=== PATIENT | female | born 1940 | race Caucasian/White ===

== ENCOUNTER → 2017-08-20 | Outpatient (REF) | payer MEDICARE, OTHER | LOC: M LAB REF 14:48 | PROVIDERS: ATTEND Family Medicine | DX: R94.6 Abnormal results of thyroid function studies (principal) ==

== ENCOUNTER → 2017-12-23 | Outpatient (REF) | payer MEDICARE, OTHER ==
[2017-12-23 11:11] LABS: ANION GAP 4 MEQ/L (8-16); BLOOD UREA NITROGEN 25 MG/DL (7-18); CALCIUM LEVEL 9.4 MG/DL (8.8-10.2); CARBON DIOXIDE LEVEL 31 MEQ/L (21-32); CHLORIDE LEVEL 106 MEQ/L (98-107); CREATININE FOR GFR 0.79 MG/DL (0.55-1.30); GLOMERULAR FILTRATION RATE > 60.0 (>39); GLUCOSE, FASTING 88 MG/DL (70-100); POTASSIUM SERUM 4.7 MEQ/L (3.5-5.1); SODIUM LEVEL 141 MEQ/L (136-145)
== END ==
LOC: M LABDRAW1 08:24
DX: R94.6 Abnormal results of thyroid function studies (principal); R03.0 Elevated blood-pressure reading, without diagnosis of hypertension
CPT/HCPCS: 84443

== ENCOUNTER 2019-02-03 09:48 | Day surgery (SDC) | payer MEDICARE, BC, OTHER ==
[~2019-02-03] VITALS: Ht 152.4 cm; Wt 63.9 kg
[~2019-02-03 09:48] MED LIST: ASPI81TA26 PO; CHOL50002 PO; FISH1000 PO; LIDOCAINE 2% INJ 100 MG/5 ML SDV (FOR ANES.) As Ordered ONE; NS 1,000 ML IV ONE; PROPOFOL 200 MG/20 ML VIAL As Ordered ONE; curamed PO
[2019-02-03] MEDS ORDERED: [UNRECOGNIZED DRUG - REMARK] (10:13)
--- NOTE | 2019-02-03 12:08 | ROOR ---
Patient Name: Mariah Schmitz Procedure Date: 02/03/2019 11:30 AM Date of : 1940 Age: 79 Room: [facility] Gender: Female Note Status: Finalized Procedure: Colonoscopy Indications: High risk colon cancer surveillance: Personal history of non-advanced adenoma, Last colonoscopy: September 2013 Providers: Bib Lakhani MD Referring MD: Lalitha Landaverde MD Requesting Provider: Medicines: Monitored Anesthesia Care Complications: No immediate complications. Procedure: Pre-Anesthesia Assessment: - Prior to the procedure, a History and Physical was performed, and patient medications and allergies were reviewed. The patient is competent. The risks and benefits of the procedure and the sedation options and risks were discussed with the patient. All questions were answered and informed consent was obtained. Patient identification and proposed procedure were verified by the physician, the nurse and the anesthesiologist in the procedure room. Mental Status Examination: alert and oriented. CV Examination: regular rate and rhythm. Prophylactic Antibiotics: The patient does not require prophylactic antibiotics. Prior Anticoagulants: The patient has taken no previous anticoagulant or antiplatelet agents. ASA Grade Assessment: II - A patient with mild systemic disease. After reviewing the risks and benefits, the patient was deemed in satisfactory condition to undergo the procedure. The anesthesia plan was to use monitored anesthesia care (MAC). Immediately prior to administration of medications, the patient was re-assessed for adequacy to receive sedatives. The heart rate, respiratory rate, oxygen saturations, blood pressure, adequacy of pulmonary ventilation, and response to care were monitored throughout the procedure. The physical status of the patient was re-assessed after the procedure. The was introduced through the anus and advanced to the cecum, identified by appendiceal orifice and ileocecal valve. The colonoscopy was somewhat difficult due to significant looping. The patient tolerated the procedure well. The quality of the bowel preparation was good. Findings: The perianal and digital rectal examinations were normal. Multiple medium-mouthed diverticula were found in the sigmoid colon. A 3 mm polyp was found in the distal ascending colon. The polyp was sessile. Biopsies were taken with a cold forceps for histology. Estimated blood loss was minimal. Impression: - Diverticulosis in the sigmoid colon. - One 3 mm polyp in the distal ascending colon. Biopsied. Recommendation: - Discharge patient to home. - Resume previous diet. - Continue present medications. - Await pathology results. Bib Lakhani MD Bib Lakhani MD 02/03/2019 12:08:06 PM Electronically signed by Bib Lakhani MD Number of Addenda: 0 Note Initiated On: 02/03/2019 11:30 AM Estimated Blood Loss: Estimated blood loss was minimal.
[2019-02-03 12:27] VITALS: BP 149/87
== END 2019-02-03 12:37 | disposition home or self-care (01) ==
LOC: M OPP 09:48
PROVIDERS: ATTEND Surgery
DX: D12.2 Benign neoplasm of ascending colon (principal); K57.30 Diverticulosis of large intestine without perforation or abscess without bleeding; Z86.010 Personal history of colon polyps

== ENCOUNTER → 2019-04-23 | Outpatient (REF) | payer MEDICARE, OTHER ==
[~2019-04-23] MED LIST changes: -LIDOCAINE 2% INJ 100 MG/5 ML SDV (FOR ANES.) As Ordered ONE; -NS 1,000 ML IV ONE; -PROPOFOL 200 MG/20 ML VIAL As Ordered ONE; +[UNRECOGNIZED DRUG - REMARK]
[2019-04-23 12:16] LABS: BASO # 0.1 10^3/uL (0.0-0.2); EOS # 0.3 10^3/uL (0.0-0.50); EOS % 4.8 % (0.0-3.0); HEMATOCRIT 36.8 % (36.0-47.0); HEMOGLOBIN 12.1 g/dl (12.0-15.5); LYMPH % 31.7 % (24.0-44.0); MEAN CORPUSCULAR HEMOGLOBIN 31.7 pg (27.0-33.0); MEAN CORPUSCULAR HGB CONC 32.9 g/dl (32.0-36.5); MEAN CORPUSCULAR VOLUME 96.3 fl (80.0-96.0); MONO # 0.6 10^3/uL (0.0-0.8); NEUTROPHILS # 3.3 10^3/uL (1.8-7.7); NEUTROPHILS % 53.2 % (36.0-66.0); PLATELET COUNT, AUTOMATED 296 10^3/uL (150-450); RED BLOOD COUNT 3.82 10^6/uL (4.00-5.40); WHITE BLOOD COUNT 6.2 10^3/uL (4.0-10.0)
[2019-04-23 12:21] LABS: ALT/SGPT 19 U/L (12-78); BILIRUBIN,TOTAL 0.4 MG/DL (0.2-1.0); BLOOD UREA NITROGEN 24 MG/DL (7-18); CALCIUM LEVEL 9.6 MG/DL (8.8-10.2); CARBON DIOXIDE LEVEL 28 MEQ/L (21-32); CHLORIDE LEVEL 108 MEQ/L (98-107); CHOLESTEROL LEVEL 176 MG/DL (<200); CHOLESTEROL RISK RATIO 2.626 (<5); CREATININE FOR GFR 0.72 MG/DL (0.55-1.30); GLOMERULAR FILTRATION RATE > 60.0 (>32); GLUCOSE, FASTING 97 MG/DL (70-100); HDL CHOLESTEROL 67 MG/DL (>40); LDL CHOLESTEROL 93 MG/DL (<100); NON-HDL-C 109 MG/DL; POTASSIUM SERUM 4.2 MEQ/L (3.5-5.1); SODIUM LEVEL 142 MEQ/L (136-145); TOTAL PROTEIN 7.2 GM/DL (6.4-8.2); TRIGLYCERIDES LEVEL 81 MG/DL (<150)
== END ==
LOC: M LABDRAW1 11:56
PROVIDERS: ATTEND Physician Assistant
DX: R03.0 Elevated blood-pressure reading, without diagnosis of hypertension (principal); Z01.810 Encounter for preprocedural cardiovascular examination; Z79.899 Other long term (current) drug therapy

== ENCOUNTER 2019-04-30 05:48 | Day surgery (SDC) | payer MEDICARE, BC, OTHER ==
[~2019-04-30] VITALS: Ht 152.4 cm; Wt 64.0 kg
[2019-04-30] MEDS ORDERED: ceFAZolin SOD 2 GM in IV 1 EA IV ONE (06:00)
[2019-04-30] MEDS ORDERED: LR 1,000 ML IV ONE (06:00)
[2019-04-30] MEDS ORDERED: PHENAZOPYRIDINE 100 MG TAB PO ONE (06:00)
[2019-04-30] MEDS ORDERED: VASOPRESSIN INJ 20 UNITS/ML VIAL As Ordered ONE (07:08)
[2019-04-30] MEDS ORDERED: dexameTHASONE 4 MG/ML 1ML VIAL (J1100) As Ordered ONE (07:43)
[2019-04-30] MEDS ORDERED: SEVOFLURANE INHAL SOLN 250 ML BTL As Ordered ONE (07:43)
[2019-04-30] MEDS ORDERED: propofoL 200 MG/20 ML VIAL As Ordered ONE (07:43)
[2019-04-30] MEDS ORDERED: fentaNYL 100 MCG/2 ML INJECTION (J3010) As Ordered ONE (07:43)
[2019-04-30] MEDS ORDERED: MIDAZOLAM INJ 2 MG/2 ML VIAL (J2250) As Ordered ONE (07:43)
[2019-04-30] MEDS ORDERED: LIDOCAINE 2% INJ 100 MG/5 ML SDV (FOR ANES.) As Ordered ONE (07:43)
[2019-04-30] MEDS ORDERED: GLYCOPYRROLATE INJ 0.2 MG/ML 2 ML VIAL As Ordered ONE (08:07)
[2019-04-30] MEDS ORDERED: ePHEDrine SULFATE 25 MG/5 ML(5MG/ML) SYRINGE As Ordered ONE (08:12)
[2019-04-30] MEDS ORDERED: ACETAMINOPHEN 1000MG 100ML IV BTL (OFIRMEV) (J0131 PER 10MG) As Ordered ONE (08:13)
[2019-04-30] MEDS ORDERED: ONDANSETRON 4MG/2ML VIAL (J2405) As Ordered ONE (08:15)
[2019-04-30] MEDS ORDERED: IBUPROFEN 600 MG TAB PO PRN (10:15)
[2019-04-30] MEDS ORDERED: NORCO, ANEXSIA 5/325MG TABLET (HYDROcodone/ACETAMINOPHEN) PO PRN (10:15)
[2019-04-30] MEDS ORDERED: METOCLOPRAMIDE INJ 10MG/2ML VIAL (J2765) IV PRN (10:15)
[2019-04-30] MEDS ORDERED: fentaNYL 100 MCG/2 ML INJECTION (J3010) IV PRN (10:15)
[2019-04-30] MEDS ORDERED: ONDANSETRON 4MG/2ML VIAL (J2405) IV PRN (10:15)
[2019-04-30] MEDS ORDERED: oxyCODONE 5MG TAB PO PRN (10:15)
[2019-04-30] MEDS ORDERED: LR 1,000 ML IV SCH ×2 (10:15)
[2019-04-30 14:35] VITALS: BP 168/86
--- NOTE | 2019-04-30 22:01 | RO ---
DATE OF PROCEDURE: 04/30/2019 PREOPERATIVE DIAGNOSIS: Symptomatic prolapse. POSTOPERATIVE DIAGNOSIS: Symptomatic prolapse. PROCEDURE: Sacrospinous suspension with anterior and posterior repair and cystourethroscopy. SURGEON: Dr. Sana Velasquez FIRMWARE ENGINEER: Irasema Kim ANESTHESIA: LMA. DESCRIPTION OF PROCEDURE: Mariah was brought to the operating room where sufficient LMA anesthesia was induced, and she was prepped, draped and positioned in the usual sterile fashion, bladder was emptied. She had taken Pyridium to facilitate visualization of the ureteral jets. She had some chafing at the vaginal cuff from her pessary, which had been, of course, removed and so an ovoid excision was made around this area of granulation tissue and this was all excised and that was right at the cuff where we were going to enter anyway so that dictated to some degree the size of that resection. Having taken the vaginal epithelium and the granulation tissue, we then dissected posteriorly to reach the right sacrospinous ligament, which was readily palpable and reasonably well developed despite this patient's 79-year-old age. We then placed four [place]on sutures using two AnchorSure anchors, so we had #2-0 [place] and placed four o them, two each in each of the two AnchorSure anchors, placed in the ligament, of course, medial to the notch so as to avoid the underlying vessels and nerves. We then carefully brought each of these sutures out [id number] through the tissues of the vaginal epithelium, two anterior, two posterior. And having placed those, marked them, kept them from tangling, we then closed the vaginal cuff in preparation for bringing down the sutures and then used a sponge on a stick to elevate the vaginal cuff to minimize the trauma because this patient has fairly delicate tissues. Then, we brought down each of those sutures and then did cystourethroscopy and found normal ureteral jets and good anterior repair with this support and no evidence of injury of the bladder. We then proceeded to an additional posterior repair because the patient has really loss of the rectovaginal septum in the mid posterior, so an inverted triangle of tissue was removed from the perineal body, dissected up posteriorly until we reached the level of the defect. We plicated the tissues with #2-0 Vicryl in the usual fashion and resected the redundant epithelium, closed the epithelium, did a perineorrhaphy using #0 Vicryl and then closed the perineal skin as well using #2-0 on the skin on each of those and then the procedure was ended. Estimated blood loss for the procedure: About 20 mL. Fluid replacement was crystalloid. Complications: None. We did do a rectal exam. Condition and Disposition: The patient tolerated the procedure well and was recovering in the recovery room in good condition.
== END 2019-04-30 14:53 | disposition home or self-care (01) ==
LOC: M SDC 05:48
PROVIDERS: ATTEND Obstetrics & Gynecology
DX: N81.89 Other female genital prolapse (principal); Z79.899 Other long term (current) drug therapy; Z88.0 Allergy status to penicillin; Z88.5 Allergy status to narcotic agent; Z91.013 Allergy to seafood
CPT/HCPCS: 57260; 57282; 88300; C1713; J0131; J0690; J1100; J2250; J2405; J3010

== ENCOUNTER → 2019-07-13 | Outpatient (CLI) | payer MEDICARE, BC, OTHER ==
--- NOTE | 2019-07-13 15:43 | REP ---
Four views right elbow: 07/13/2019. Indication: Right elbow pain. Comparison: None. Findings: There is no acute fracture, subluxation or dislocation. No erosive lesions of the bones are present. There is no significant joint effusion detected. Impression: No fracture or additional acute osseous abnormalities of the right elbow. No significant effusion. Electronically Signed by Randy Barrow DO 07/13/2019 03:34 P
== END ==
LOC: M WUC 12:05
PROVIDERS: ATTEND Physician Assistant
DX: M25.521 Pain in right elbow (principal)

== ENCOUNTER → 2020-09-27 | Outpatient (CLI) | payer SELFPAY | LOC: M LABSMTC 09:39 | PROVIDERS: ATTEND Pediatrics | DX: Z20.822 Contact with and (suspected) exposure to COVID-19 (principal) ==

== ENCOUNTER 2020-10-20 05:34 | Inpatient (IN) | payer MEDICARE, BC, OTHER ==
[2020-10-20] VITALS (12 sets, daily range): BP systolic 113–135; BP diastolic 60–76
[~2020-10-20] VITALS: Ht 154.9 cm; Wt 65.5 kg
--- OUTSIDE RECORDS SUMMARY | 2020-10-20 05:40 | CCD | Continuity of Care Document ---
Author Author Mariah DEY M.D. Organization Unknown Address [address] [place] [address] Phone [phone] Care Team Providers Care Embedded Software Developer Name Role Phone Noaman. Jimmy Augustin AUTM [phone] Sana Velasquez M.D. AUTM [phone] Problems Active Problems Provider Date Essential hypertension Lalitha Dey M.D. Onset: 07/27 Spinal stenosis of lumbar region Lalitha Dey M.D. On set: 07/27/2020 Social History Type Date Description Comments Sex Unknown Tobacco Use Start: Unknown End: Unknown denies cigarette use Tobacco Use Start: Unknown Never Used Smokeless Tobacco ETOH Use Occasionally consumes alcohol Tobacco Use Start: Unknown End: Unknown Patient is a former smoker social smoker in college. Recreational Drug Use Denies Drug Use Smoking Status Reviewed: 07/25/20 Patient is a former smoker so cial smoker in college. Exercise Type/Frequency Exercises regularly walk ing and physical therapy exercises daily Tattoo/Piercing Pierced ears Sun Exposure Uses sunscreen Seat Belt/Car Seat Always uses seat belt Bike Helmet Never She never bike r ides Guns in Home No Smoke Alarms Yes Smoke Alarms Carbon Monoxide Detector: Yes Allergies, Adverse Reactions, Alerts Active Allergies Reaction Severity Comments Date Pen VK hives 04/23/2005 Metronidazole face broke out with welts 0 02/18/2012 Bactrim hives 08/08/2012 Shellfish-derived Products faints 0 10/27/2013 Tramadol Nausea, Vomiting 07/07/2018 Ragweed 01/04/2020 Medications Active Medications SIG Qnty Indications Ordering Provide r Date Lisinopril 10mg Tablets Take 1 Tablet By Mouth Every Day 90tabs I10 Lalitha Dey M.D. 020 Vitamin D-1000 1000Unit Tablets 1 po qd otc Lalitha Dey M.D. 07/16/2011 Aspirin 81mg Chewtabs 1 po qd Lalitha Dey M.D. 02/01/2006 Calcium Carbonate 500mg W/D Tablet s 1 po bid Unknown Claritin 10mg Tablets 1 PO qd prn OTC Unknown Fish Oil Concentrate 1000mg Capsul es 2 by mouth every day Noaman. Augustin M.D. Curamin Tablets OTC- bid Unknown Retaine Eye Drops 0.5% Solution 2 dropsin each eye 2-3 times a day Noaman. Augustin M.D. Vitamin B Complex Tablets 1 by mouth every day Unknown Magnesium 250mg Tablets 1 by mouth every day Unknown Immunizations CPT Code Status Date Vaccine Lot # [id number] Given 06/27/2020 Influenza Virus Vaccine, Quadrivalent,age 3 and up,multidose vial 62712 Given 05/26/2019 Influenza Virus Vaccine, Quadrivalent,age 3 and up,multidose vial 03246 Given 05/26/2019 Influenza Virus Vaccine, Quadrivalent,age 3 and up,multidose vial 04646 Given 07/07/2018 Influenza Virus Vaccine, Quadrivalent,age 3 and up,multidose vial [id number] Q2038 Given 07/01/2017 Influenza Vaccine (Fluzone)( medicare) [id number] 70631 Given 06/15/2016 Influenza Vaccination 80541 Given 12/28/2015 Zostavax 60971 Given 12/27/2015 Zostavax 51850 Given 12/27/2015 Prevnar 13 [id number] 07560 Given 10/03/2015 Boostrix (Tdap) Tetnus, Diphtheria Toxoids & Acellular Pertussis [id number] Q2038 Given 06/09/2015 Influenza Vaccine (Fluzone)( medicare) [id number] 94358 Given 06/08/2013 Influenza Vaccination [id number] Q2038 Given 06/08/2013 Influenza Vaccine (Fluzone)( medicare) 32015 Given 07/28/2012 Influenza Vaccination/preser vative free [id number] Q2038 Given 07/10/2011 Influenza Vaccine (Fluzone)( medicare) 22190 Given 07/10/2011 Influenza Vaccination/preser vative free [id number] 41944 Given 06/13/2010 Pneumococcal Vaccine [id number] 77380 Given 06/13/2010 Influenza Vaccination [id number] 08789 Given 06/03/2009 Influenza Vaccination [id number] 13131 Given 06/21/2008 Influenza Vaccination [id number] 62296 Given 07/02/2007 Influenza Vaccination [id number] 93636 Given 06/17/2006 Influenza Vaccination [id number] 44637 Given 06/05/2005 Influenza Vaccination [id number] Vital Signs Date Vital Result Comment 07/25/2020 11:10am BP Systolic 169 mmHg BP Diastolic 79 mmHg BP Systolic Recheck 129 mmHg BP Diastolic Recheck 74 mmHg Heart Rate 72 /min Body Temperature 97.6 F Respiratory Rate 17 /min Height 60 inches 5'0" Weight 140.00 lb O2 % BldC Oximetry 98 % [place] Body Weight 100 lb BMI (Body Mass Index) 27.3 kg/m2 03/23/2020 8:21am BP Systolic 171 mmHg BP Diastolic 67 mmHg BP Systolic Recheck 147 mmHg BP Diastolic Recheck 68 mmHg Heart Rate 74 /min Body Temperature 97.2 F Respiratory Rate 20 /min Height 60 inches 5'0" Weight 145.00 lb O2 % BldC Oximetry 98 % [place] Body Weight 100 lb BMI (Body Mass Index) 28.3 kg/m2 Results Test Acquired Date Facility Test Result H/L Range Note Coronavirus 2018 ([facility]) 09/27/2020 Patient Service C enter [facility] [address] [phone] Coronavirus 2019 ([facility]) <SEE NOTE> 1 1 Test: COVID-19 Nasal/Naspharynx Result: POSITIVE for 2019-nCoV Reference Units: Not detected NOTE: The COVID-19 assay is under Emergency Use Authorization(EUA) by the U.S. Food and Drug Administration. [facility] is designated as a high complexity laboratory by the Clinical Laboratory Improvement Amendments of 1988(CLIA) and is qualified to perform this test. ASSAY INFORMATION: Real Time RT-PCR Procedures Date Code Description Status 01/14/2019 [id number] Mammogram Completed 01/04/2016 [id number] Mammogram Completed 12/21/2014 [id number] Mammogram Completed Medical Devices Description No Information Available Encounters Type Date Location Provider Dx Diagnosis Office Visit 07/25/2020 11:15a Main Office Lalitha Dey M.D. I 10 Essential (primary) hypertension Assessments Date Code Description Provider 07/25/2020 I10 Essential (primary) hypertension Lalitha Dey M.D. Plan of Treatment Future Appointment(s):* 01/17/2021 8:00 am - Lalitha Dey M.D. at Main Office 07/25/2020 - Lalitha Dey M.D.* I10 Essential (primary) hypertension* New Labs:* Comprehensive Metabolic Profil, Scheduled: 01/16/21 * CBC With Differential, Scheduled: 01/16/21 * Lipid Panel, Scheduled: 01/16/21 * Comments:* She's not to goal in the office but consistently good outside of the office. Keep exercising and monitoring BP. Follow up in 6 months. * Follow up:* 6 months, with labs Goals 07/25/2020 - Lalitha Dey M.D.* I10 Essential (primary) hypertension* Blood Pressure not to goal. Monitor it out of the office and bring a list of readings to the follow up appointment. Notify the office if Blood pressure is consistently higher than 140/90. Work toward getting 30 minutes of moderate intensity exercise at least 5 days per week. Functional Status Functional Condition Comment Date Status .None Active Independent with all ADL's Activ e Independent with all IADL's Acti ve Mental Status Mental Condition Comment Date Status None Active Referrals Description No Information Available
--- OUTSIDE RECORDS SUMMARY | 2020-10-20 05:40 | CCD | Continuity of Care Document ---
Author Author Mariah DEY M.D. Organization Unknown Address [address] [place] [address] Phone [phone] Care Team Providers Care Director Of Professional Services Name Role Phone Noaman. Jimmy Augustin AUTM [phone] Sana Velasquez M.D. AUTM [phone] Problems Description No Active Problems Social History Type Date Description Comments Sex [...] Ordering Provide r Date Lisinopril 10mg Tablets take 1 tablet by mouth every day 90tabs I10 Komal Rosales FNP 09/15/2019 Vitamin D-1000 1000Unit Tablets 1 po qd [...] CPT Code Status Date Vaccine Lot # [id number] Given 06/27/2020 Influenza Virus Vaccine, Quadrivalent,age 3 and up,multidose vial 36128 Given 05/26/2019 Influenza Virus Vaccine, Quadrivalent,age 3 and up,multidose vial 46095 Given 05/26/2019 Influenza Virus Vaccine, Quadrivalent,age 3 and up,multidose vial 00429 Given 07/07/2018 Influenza Virus Vaccine, Quadrivalent,age 3 and up,multidose vial [id number] Q2038 Given 07/01/2017 Influenza Vaccine (Fluzone)( medicare) [id number] 15472 Given 06/15/2016 Influenza Vaccination 16822 Given 12/28/2015 Zostavax 97845 Given 12/27/2015 Zostavax 70834 Given 12/27/2015 Prevnar 13 [id number] 35928 Given 10/03/2015 Boostrix (Tdap) Tetnus, Diphtheria Toxoids & Acellular Pertussis [id number] Q2038 Given 06/09/2015 Influenza Vaccine (Fluzone)( medicare) [id number] 32207 Given 06/08/2013 Influenza Vaccination [id number] Q2038 Given 06/08/2013 Influenza Vaccine (Fluzone)( medicare) 19174 Given 07/28/2012 Influenza Vaccination/preser vative free [id number] Q2038 Given 07/10/2011 Influenza Vaccine (Fluzone)( medicare) 98407 Given 07/10/2011 Influenza Vaccination/preser vative free [id number] 45640 Given 06/13/2010 Pneumococcal Vaccine [id number] 79606 Given 06/13/2010 Influenza Vaccination [id number] 04245 Given 06/03/2009 Influenza Vaccination [id number] 57767 Given 06/21/2008 Influenza Vaccination [id number] 23728 Given 07/02/2007 Influenza Vaccination [id number] 40405 Given 06/17/2006 Influenza Vaccination [id number] 52359 Given 06/05/2005 Influenza Vaccination [id number] Vital Signs Date Vital Result Comment 07/25/2020 11:10am BP Systolic 169 mmHg BP Diastolic 79 mmHg BP Systolic Recheck 129 mmHg BP Diastolic Recheck 74 mmHg Heart Rate 72 /min Body Temperature 97.6 F Respiratory Rate 17 /min Height 60 inches 5'0" Weight 140.00 lb O2 % BldC Oximetry 98 % [place] Body Weight 100 lb BMI (Body Mass Index) 27.3 kg/m2 03/23/2020 8:21am BP Systolic 171 mmHg BP Diastolic 67 mmHg BP Systolic Recheck 147 mmHg BP Diastolic Recheck 68 mmHg Heart Rate 74 /min Body Temperature 97.2 F Respiratory Rate 20 /min Height 60 inches 5'0" Weight 145.00 lb O2 % BldC Oximetry 98 % [place] Body Weight 100 lb BMI (Body Mass Index) 28.3 kg/m2 Results Description No Information Available Procedures Date Code Description Status 01/14/2019 [id number] Mammogram Completed 01/04/2016 [id number] Mammogram Completed 12/21/2014 [id number] Mammogram Completed Medical Devices Description No Information Available Encounters Type Date Location Provider Dx Diagnosis Office Visit 07/25/2020 11:15a Main Office Lalitha Dey M.D. I 10 Essential (primary) hypertension Office Visit 03/23/2020 8:15a Main Office Komal Rosales FNP I10 Essential (primary) hypertension Assessments Date Code Description Provider 07/25/2020 I10 Essential (primary) hypertension Lalitha Dey M.D. 03/23/2020 I10 Essential (primary) hypertension Komal Rosales FNP Plan of Treatment Future Appointment(s):* 01/17/2021 8:00 [...]
--- OUTSIDE RECORDS SUMMARY | 2020-10-20 05:40 | CCD | Continuity of Care Document ---
Author Author Mariah DEY M.D. Organization Unknown Address [address] [place] [address] Phone [phone] Care Team Providers Care Manager Wastewater Name Role Phone Noaman. Jimmy Augustin AUTM [phone] Sana Velasquez M.D. AUTM [phone] Problems Description No Active Problems Social History [...] CPT Code Status Date Vaccine Lot # 54621 Given 06/27/2020 Influenza Virus Vaccine, Quadrivalent,age 3 and up,multidose vial 40083 Given 05/26/2019 Influenza Virus Vaccine, Quadrivalent,age 3 and up,multidose vial 95778 Given 05/26/2019 Influenza Virus Vaccine, Quadrivalent,age 3 and up,multidose vial 60686 Given 07/07/2018 Influenza Virus Vaccine, Quadrivalent,age 3 and up,multidose vial [id number] Q2038 Given 07/01/2017 Influenza Vaccine (Fluzone)( medicare) [id number] 42202 Given 06/15/2016 Influenza Vaccination 75028 Given 12/28/2015 Zostavax 83412 Given 12/27/2015 Zostavax 56044 Given 12/27/2015 Prevnar 13 [id number] 42380 Given 10/03/2015 Boostrix (Tdap) Tetnus, Diphtheria Toxoids & Acellular Pertussis [id number] Q2038 Given 06/09/2015 Influenza Vaccine (Fluzone)( medicare) [id number] 20937 Given 06/08/2013 Influenza Vaccination [id number] Q2038 Given 06/08/2013 Influenza Vaccine (Fluzone)( medicare) 07993 Given 07/28/2012 Influenza Vaccination/preser vative free [id number] Q2038 Given 07/10/2011 Influenza Vaccine (Fluzone)( medicare) 66077 Given 07/10/2011 Influenza Vaccination/preser vative free [id number] 31762 Given 06/13/2010 Pneumococcal Vaccine [id number] 05450 Given 06/13/2010 Influenza Vaccination [id number] 92801 Given 06/03/2009 Influenza Vaccination [id number] 72451 Given 06/21/2008 Influenza Vaccination [id number] 65674 Given 07/02/2007 Influenza Vaccination [id number] 12873 Given 06/17/2006 Influenza Vaccination [id number] 26666 Given 06/05/2005 Influenza Vaccination [id number] Vital Signs Date Vital Result Comment 07/25/2020 11:10am BP Systolic 169 mmHg BP Diastolic 79 mmHg BP Systolic Recheck 129 mmHg BP Diastolic Recheck 74 mmHg Heart Rate 72 /min Body Temperature 97.6 F Respiratory Rate 17 /min Height 60 inches 5'0" Weight 140.00 lb O2 % BldC Oximetry 98 % [place] Body Weight 100 lb BMI (Body Mass Index) 27.3 kg/m2 03/23/2020 8:21am BP Systolic 171 mmHg BP Diastolic 67 mmHg BP Systolic Recheck 147 mmHg BP Diastolic Recheck 68 mmHg Heart Rate 74 /min Body Temperature 97.2 F Respiratory Rate 20 /min Height 60 inches 5'0" Weight 145.00 lb O2 % BldC Oximetry 98 % [place] Body Weight 100 lb BMI (Body Mass Index) 28.3 kg/m2 Results Description No Information Available Procedures Date Code Description Status 01/14/2019 [id number] Mammogram Completed 01/04/2016 [id number] Mammogram Completed 12/21/2014 [id number] Mammogram Completed Medical Devices Description No Information Available Encounters Type Date Location Provider Dx Diagnosis Office Visit 03/23/2020 8:15a Main Office Komal Rosales FNP I10 Essential (primary) hypertension Assessments Date Code Description Provider 07/25/2020 I10 Essential (primary) hypertension Lalitha Dey M.D. 03/23/2020 I10 Essential (primary) hypertension Komal Rosales FNP Plan of Treatment 07/25/2020 - Lalitha Dey M.D.* I10 Essential (primary) hypertension* New Labs:* Comprehensive Metabolic Profil, Scheduled: 01/16/21 * CBC With Differential, Scheduled: 01/16/21 * Lipid Panel, Scheduled: 01/16/21 * Follow up:* 6 months, with labs Functional Status Functional Condition Comment Date Status .None Active Independent with all ADL's Activ e Independent with all IADL's Acti ve Mental Status Mental Condition Comment Date Status None Active Referrals Description No Information Available
--- OUTSIDE RECORDS SUMMARY | 2020-10-20 05:40 | CCD | Continuity of Care Document ---
Author Author Mariah COMER PAShira Organization Unknown Address [address] [place] [address] Phone [phone] Care Team Providers Care Legal Summer Intern Name Role Phone Lalitha Landaverde MD [facility] [phone] Problems Description No Active Problems Social History Type Date Description Comments Sex Unknown ETOH Use Occasionally consumes alcohol Tobacco Use Start: Unknown End: Unknown Patient is a former smoker Allergies, Adverse Reactions, Alerts Active Allergies Reaction Severity Comments Date Penicillin 07/20/2015 Ragweed 07/20/2015 Shellfish-derived Products 1 09/19/2014 Metronidazole and Related Medications Active Medications SIG Qnty Indications Ordering Provide r Date Euflexxa 20mg/2ML Soln Prefill Syr junie right knee #1 10/10/20 cp/bms, rt knee 10/17/2020 BMS/TF Francesco Mason MD 02/09/2020 Zanaflex 4mg Tablets 1 by mouth at bedtime 60tabs Damien Hale MD 06/16/2018 Tizanidine HCL 2mg Tablets 1/2 tablet po bid and 1 tablet p.o. qhs x 7 days, then may increase to 1 tablet p.o. bid and 1-2 tablets p.o. qhs Unknown Multi Vitamin Daily Tablets every day Unknown Aspirin 81mg Tablets 1 by mouth every day Unknown Vitamin D 2000Unit Capsules 1 by mouth a day Unknown Calcium 500 + D [id number] Tab lets 1 by mouth twice a day Unknown Coumadin Tablets as direc tati by doctor Unknown Immunizations Description No Information Available Vital Signs Date Vital Result Comment 06/16/2018 8:53am Body Temperature 97.5 F Height 60 inches 5'0" Weight 138.25 lb BMI (Body Mass Index) 27.0 kg/m2 05/29/2017 2:53pm Body Temperature 98.6 F Height 60 inches 5'0" Weight 144.00 lb BMI (Body Mass Index) 28.1 kg/m2 Results Description No Information Available Procedures Date Code Description Status 10/17/202064939 Inject/Drain Joint/Bursa Major C ompleted 10/10/2020 59132 Inject/Drain Joint/Bursa Major C ompleted Medical Devices Description No Information Available Encounters Type Date Location Provider Dx Diagnosis Office Visit 10/17/2020 11:00a [facility] Comer PA-C M1 7.11 Unilateral primary osteoarthritis, right knee Office Visit 10/10/2020 10:30a [facility] PA-C M1 7.11 Unilateral primary osteoarthritis, right knee Assessments Date Code Description Provider 10/17/2020 M17.11 Unilateral primary osteoarthriti s, right knee Young Comer PA-C 10/10/2020 M17.11 Unilateral primary osteoarthriti s, right knee Young Comer PA-C Plan of Treatment Future Appointment(s):* 10/24/2020 11:30 am - Young Comer PA-C at [facility] 10/10/2020 - Young Comer PA-C* M17.11 Unilateral primary osteoarthritis, right knee Functional Status Description No Information Available Mental Status Description No Information Available Referrals Refer to Dr Reason for Referral Status Appt Date Young Comer PA-C Right knee Euflexxa- No authorization r eq Created [facility] [address] [place] [address] [phone]
--- OUTSIDE RECORDS SUMMARY | 2020-10-20 05:40 | CCD ---
Continuity of Care Document (CCD) Created on: 10/10/2020 Mariah Schmitz External Reference #: [id number] : [id number] Sex: Female Author Author Mariah COMER PAShira Organization Unknown Address [address] [place] [id number] Phone [phone] Care Team Providers Care Betting Clerk Name Role Phone Lalitha Landaverde MD [facility] [phone] Problems Description No Active Problems Social History [...] Prefill Syr junie right knee #1 10/10/20 cp/bms Francesco Mason MD 0 02/09/2020 Zanaflex 4mg Tablets 1 by mouth [...] a day Unknown Calcium 500 + D [id number] Tab lets 1 by mouth twice a [...] Information Available Procedures Date Code Description Status 10/10/2020 37390 Inject/Drain Joint/Bursa Major C ompleted Medical Devices Description No Information Available Encounters Type Date Location Provider Dx Diagnosis Office Visit 10/10/2020 10:30a [facility] Yonug Comer PA-C M1 7.11 Unilateral primary osteoarthritis, right knee Assessments Date Code Description Provider 10/10/2020 M17.11 Unilateral primary osteoarthriti s, right knee Young Comer PA-C Plan of Treatment Future Appointment(s):* 10/24/2020 11:30 am - Young Comer PA-C at [facility] * 10/17/2020 11:00 am - Young Comer PA-C at [facility] 10/10/2020 - Young Comer PA-C* M17.11 Unilateral primary osteoarthritis, right knee Functional Status Description No Information Available Mental Status Description No Information Available Referrals Refer to Dr Reason for Referral Status Appt Date Young Comer PA-C Right knee Euflexxa- No authorization r eq Created [address] [facility] [address] [place] [address] [phone]
--- OUTSIDE RECORDS SUMMARY | 2020-10-20 05:41 | CCD ---
Author Author [facility] Organization [facility] Address Unknown Phone Unavailable Care Team Providers Care Tea Blender Name Role Phone Nayan Landaverde MD Unavailable Unavailable Akhil, Nayan Doty MD Unavailable Unavailable Akhil, Nayan Doty MD Unavailable Unavailable Akhil, Nayan Doty MD Unavailable Unavailable Akhil, Nayan Doty MD Unavailable Unavailable Akhil, Nayan Doty MD Unavailable Unavailable Akhil, Nayan Doty MD Unavailable Unavailable Akhil, Nayan Doty MD Unavailable Unavailable Akhil, Nayan Doty MD Unavailable Unavailable Akhil, Nayan Doty MD Unavailable Unavailable Akhil, Nayan Doty MD Unavailable Unavailable Akhil, Nayan Doty MD Unavailable Unavailable Akhil, Nayan Doty MD Unavailable Unavailable Akhil, Nayan Doty MD Unavailable Unavailable Akhil, Nayan Doty MD Unavailable Unavailable Akhil, Nayan Doty MD Unavailable Unavailable Akhil, Nayan Doty MD Unavailable Unavailable Akhil, Nayan Doty MD Unavailable Unavailable Akhil, Nayan Doty MD Unavailable Unavailable Akhil, Nayan Doty MD Unavailable Unavailable Akhil, Nayan Doty MD Unavailable Unavailable Akhil, Nayan Doty MD Unavailable Unavailable Akhil, Nayan Doty MD Unavailable Unavailable Akhil, Nayan Doty MD Unavailable Unavailable Akhil, Nayan Doty MD Unavailable Unavailable Akhil, Nayan Doty MD Unavailable Unavailable Akhil, Nayan Doty MD Unavailable Unavailable Akhil, Nayan Doty MD Unavailable Unavailable Akhil, Nayan Doty MD Unavailable Unavailable Akhil, Nayan Doty MD Unavailable Unavailable Akhil, Nayan Doty MD Unavailable Unavailable Akhil, Nayan Doty MD Unavailable Unavailable Akhil, Nayan Doty MD Unavailable Unavailable Akhil, Nayan Doty MD Unavailable Unavailable Akhil, Nayan Doty MD Unavailable Unavailable Akhil, Nayan Doty MD Unavailable Unavailable Akhil, Nayan Doty MD Unavailable Unavailable Akhil, Nayan Doty MD Unavailable Unavailable Akhil, A Lalitha MD Unavailable Unavailable Akhil, A Lalitha DUENAS Unavailable Unavailable Akhil, A Lalitha MD Unavailable Unavailable Akhil, A Lalitha MD Unavailable Unavailable Akhil, A Lalitha DUENAS Unavailable Unavailable Akhil, A Lalitha DUENAS Unavailable Unavailable Akhil, A Lalitha DUENAS Unavailable Unavailable Akhil, A Lalitha MD Unavailable Unavailable Akhil, A Lalitha MD Unavailable Unavailable Akhil, A Lalitha MD Unavailable Unavailable Akhil, A Lalitha MD Unavailable Unavailable Akhil, A Lalitha MD Unavailable Unavailable Akhil, A Lalitha DUENAS Unavailable Unavailable Akhil, A Lalitha DUENAS Unavailable Unavailable Akhil, A Lalitha MD Unavailable Unavailable Akhil, A Lalitha MD Unavailable Unavailable Akhil, A Lalitha MD Unavailable Unavailable Akhil, A Lalitha MD Unavailable Unavailable Akhil, A Lalitha MD Unavailable Unavailable Akhil, A Lalitha MD Unavailable Unavailable Akhil, A Lalitha DUENAS Unavailable Unavailable Akhil, A Lalitha DUENAS Unavailable Unavailable Akhil, A Lalitha MD Unavailable Unavailable Akhil, A Lalitha MD Unavailable Unavailable Akhil, A Lalitha MD Unavailable Unavailable Akhil, A Lalitha MD Unavailable Unavailable Akhil, A Lalitha MD Unavailable Unavailable Akhil, A Lalitha DUENAS Unavailable Unavailable Akhil, A Lalitha DUENAS Unavailable Unavailable Akhil, A Lalitha DUENAS Unavailable Unavailable Akhil, A Lalitha DUENAS Unavailable Unavailable Akhil, A Lalitha DUENAS Unavailable Unavailable Akhil, A Lalitha DUENAS Unavailable Unavailable Akhil, A Lalitha MD Unavailable Unavailable Akhil, A Lalitha MD Unavailable Unavailable Akhil, A Lalitha DUENAS Unavailable Unavailable Akhil, A Lalitha DUENAS Unavailable Unavailable Pleskach, Komal FOOD SAFETY AUDITOR Unavailable Unavailable Pleskach, Komal FOOD SAFETY AUDITOR Unavailable Unavailable Pleskach, Komal FOOD SAFETY AUDITOR Unavailable Unavailable Pleskach, Komal FOOD SAFETY AUDITOR Unavailable Unavailable Pleskach, Komal FOOD SAFETY AUDITOR Unavailable Unavailable Pleskach, Komal FOOD SAFETY AUDITOR Unavailable Unavailable Pleskach, Komal FOOD SAFETY AUDITOR Unavailable Unavailable Pleskach, Komal FOOD SAFETY AUDITOR Unavailable Unavailable Pleskach, Komal FOOD SAFETY AUDITOR Unavailable Unavailable Pleskach, Komal FOOD SAFETY AUDITOR Unavailable Unavailable Pleskach, Komal FOOD SAFETY AUDITOR Unavailable Unavailable Pleskach, Komal FOOD SAFETY AUDITOR Unavailable Unavailable Pleskach, Komal FOOD SAFETY AUDITOR Unavailable Unavailable Pleskach, Komal FOOD SAFETY AUDITOR Unavailable Unavailable Pleskach, Komal FOOD SAFETY AUDITOR Unavailable Unavailable Pleskach, Komal FOOD SAFETY AUDITOR Unavailable Unavailable Pleskach, Komal FOOD SAFETY AUDITOR Unavailable Unavailable Pleskach, Komal FOOD SAFETY AUDITOR Unavailable Unavailable Pleskach, Komal FOOD SAFETY AUDITOR Unavailable Unavailable Pleskach, Komal FOOD SAFETY AUDITOR Unavailable Unavailable Pleskach, Komal FOOD SAFETY AUDITOR Unavailable Unavailable Pleskach, Komal FOOD SAFETY AUDITOR Unavailable Unavailable Pleskach, Komal FOOD SAFETY AUDITOR Unavailable Unavailable Pleskach, Komal FOOD SAFETY AUDITOR Unavailable Unavailable Pleskach, Komal FOOD SAFETY AUDITOR Unavailable Unavailable Pleskach, Komal FOOD SAFETY AUDITOR Unavailable Unavailable Pleskach, Komal FOOD SAFETY AUDITOR Unavailable Unavailable Pleskach, Komal FOOD SAFETY AUDITOR Unavailable Unavailable Pleskach, Komal FOOD SAFETY AUDITOR Unavailable Unavailable Pleskach, Komal FOOD SAFETY AUDITOR Unavailable Unavailable Comer, M Barratt PA Unavailable Unavailable Comer, M Barratt PA Unavailable Unavailable Comer, M Barratt PA Unavailable Unavailable Comer, M Barratt PA Unavailable Unavailable Comer, M Barratt PA Unavailable Unavailable Comer, M Barratt PA Unavailable Unavailable Comer, M Barratt PA Unavailable Unavailable Comer, M Barratt PA Unavailable Unavailable Comer, M Barratt PA Unavailable Unavailable Comer, M Barratt PA Unavailable Unavailable Comer, M Barratt PA Unavailable Unavailable Comer, M Barratt PA Unavailable Unavailable Comer, M Barratt PA Unavailable Unavailable Comer, M Barratt PA Unavailable Unavailable Comer, M Barratt PA Unavailable Unavailable Comer, M Barratt PA Unavailable Unavailable Comer, M Barratt PA Unavailable Unavailable Comer, M Barratt PA Unavailable Unavailable Comer, M Barratt PA Unavailable Unavailable Comer, M Barratt PA Unavailable Unavailable Comer, M Barratt PA Unavailable Unavailable Comer, M Barratt PA Unavailable Unavailable Comer, M Barratt PA Unavailable Unavailable Comer, M Barratt PA Unavailable Unavailable Comer, M Barratt PA Unavailable Unavailable Comer, M Barratt PA Unavailable Unavailable Comer, M Barratt PA Unavailable Unavailable Re-disclosure Warning The records that you are about to access may contain information from federally-assisted alcohol or drug abuse programs. If such information is present, then the following federally mandated warning applies: This information has been disclosed to you from records protected by federal confidentiality rules (42 CFR part 2). The federal rules prohibit you from making any further disclosure of this information unless further disclosure is expressly permitted by the written consent of the person to whom it pertains or as otherwise permitted by 42 CFR part 2. A general authorization for the release of medical or other information is NOT sufficient for this purpose. The Federal rules restrict any use of the information to criminally investigate or prosecute any alcohol or drug abuse patient.The records that you are about to access may contain highly sensitive health information, the redisclosure of which is protected by Article 27-F of the [facility] Public Health law. If you continue you may have access to information: Regarding HIV / AIDS; Provided by facilities licensed or operated by the [facility] Office of Mental Health; or Provided by the [facility] Office for People With Developmental Disabilities. If such information is present, then the following [facility] mandated warning applies: This information has been disclosed to you from confidential records which are protected by state law. State law prohibits you from making any further disclosure of this information without the specific written consent of the person to whom it pertains, or as otherwise permitted by law. Any unauthorized further disclosure in violation of state law may result in a fine or mcfp sentence or both. A general authorization for the release of medical or other information is NOT sufficient authorization for further disc losure. Family History Family Member Name Family Member Gender Family Member Status Date o f Status Description Data Source(s) Unknown Unknown Problem [facility] ([facility] Unknown Unknown Problem [facility] Unknown Female Problem [facility] ([facility]) Unknown Female Problem [facility] ([facility]) Encounters Encounter Providers Location Date Indications Data Source(s ) Office Visit Attender: Young VALLADARES Physical Therapy 10:00:00 AM EST [facility] ([facility]) Office Visit Attender: Young VALLADARES Physical [facility] 09:30:00 AM EST [facility] ([facility]) Outpatient Attender: Lalitha Landaverde MD Main Office 07/25/2020 10:15:0 0 AM EST [facility] ([facility] Outpatient Attender: Komal GOMES Main Office 03/23/2020 0 8:15:00 AM EDT [facility] ([facility] Outpatient Attender: Lalitha Landaverde MD Main Office 01/04/2020 08:15:0 0 AM EDT [facility] ([facility] Outpatient Attender: Komal GOMES Main Office 10/14/2019 0 9:45:00 AM EST [facility] ([facility] Outpatient Attender: Lalitha Landaverde MD Main Office 09/15/2019 08:00:0 0 AM EST [facility] ([facility] Immunizations Vaccine Date Status Description Data Source(s) COVID-19 VACCINE, MRNA-1273, LNP-S (MODERNA)/PF 10/16/2020 1 2:00:00 AM EST completed [facility] New in 2012. IIV4 06/27/2020 11:19:00 AM EDT completed [facility] ([facility] Medications Medication Brand Name Start Date Product Form Dose Route Admi nistrative Instructions Pharmacy Instructions Status Indications Reaction Description Data Source(s) 2 ML Sodium Hyaluronate 10 MG/ML Prefilled Syringe [Euflexxa ] Euflexxa 02/09/2020 12:00:00 AM EDT active [facility] ([facility] ) Lisinopril 10 MG Oral Tablet Lisinopril 09/15/2019 12:00:00 AM EST active [facility] ([facility] Insurance Providers Payer name Policy type / Coverage type Policy ID Covered republican ID Covered republican's relationship to ayala Policy Ayala Plan Information MEDICARE [id number] SP [id number] FORMERLY [facility] [id number] SP [id number] [facility] [id number] SP [id number] SELF PAY ONLY [id number] SP [id number] [facility] O [id number] S [id number] MEDICARE C [id number] S [id number] MEDICARE [id number] SP [id number] [facility] [place] Plan Medigap Part B [id number] Self [id number] [place] Primary [id number] Self [id number] [facility]/United Healthcare Medigap Part B [id number] Self [id number] [place] Primary [id number] Self [id number] [place] [facility] Medigap Part B [id number] Self [id number] [place] Medicare Primary [id number] Self [id number] [place] [employer] Medigap Part B [id number] Self [id number] [place] Medicare Primary [id number] Self [id number] [place] [employer] Medigap Part B [id number] Self [id number] [place] Medicare Primary [id number] Self [id number] [place] [employer] Medigap Part B [id number] Self [id number] [place] Medicare Primary [id number] Self [id number] Emp/United Healthcare Medigap Part B [id number] Self [id number] [place] Medicare Primary [id number] Self [id number] [place] [employer] Medigap Part B [id number] Self [id number] [place] Medicare Primary [id number] Self [id number] [place] [employer] Medigap Part B [id number] Self [id number] [place] Medicare Primary [id number] Self [id number] [facility] [place] Plan Medigap Part B [id number] Self [id number] [place] Medicare Primary [id number] Self [id number] [place] [employer] Medigap Part B [id number] Self [id number] [place] Medicare Primary [id number] Self [id number] [place] [employer] Medigap Part B [id number] Self [id number] [place] Medicare Primary [id number] Self [id number] [place] [employer] Medigap Part B [id number] Self [id number] [place] Medicare Primary [id number] Self [id number] [place] [employer] Medigap Part B [id number] Self [id number] [place] Medicare Primary [id number] Self [id number] [place] (STATE EMP) O [id number] S [id number] MEDICARE C [id number] S [id number] D Emp/United Healthcare Medigap Part B [id number] Self [id number] [place] Medicare Primary [id number] Self [id number] Emp/United [employer] Medigap Part B [id number] Self [id number] [place] Medicare Primary [id number] Self [id number] [place] [employer] Medigap Part B [id number] Self [id number] Medicare [facility] Medicare Primary [id number] Self [id number] UNITED HEALTHCARE [id number] SP [id number] Emp/United Healthcare Medigap Part B [id number] Self [id number] Medicare [facility] Medicare Primary [id number] Self [id number] Emp/United Healthcare Medigap Part B [id number] Self [id number] [place] Medicare Primary [id number] Self [id number] [place] [employer] Medigap Part B [id number] Self [id number] [place] Medicare Primary [id number] Self [id number] [place] [employer] Medigap Part B [id number] Self [id number] [place] Medicare Primary [id number] Self [id number] [place] [employer] Medigap Part B [id number] Self [id number] [place] Medicare Primary [id number] Self [id number] Emp/United Healthcare Medigap Part B [id number] Self [id number] [place] Medicare Primary [id number] Self [id number] Emp/United Healthcare Medigap Part B Self Medicare [facility] Medicare Primary Self [place] [employer] Healthcare Medigap Part B Self Medicare [facility] Medicare Primary Self [facility] [id number] SP [id number] D Problems, Conditions, and Diagnoses Code Display Name Description Problem Type Effective Dates Data Source(s) 80246355 Spinal stenosis of lumbar region Spinal stenosis of lumbar region Problem 07/27/2020 12:00:00 AM EST [facility] ([facility] [id number] Essential hypertension Essential hypertension Problem 07/27/2020 12:00:00 AM EST [facility] ([facility] Surgeries/Procedures Procedure Description Date Indications Data Source(s) ARTHROCENTESIS ASPIR&/INJECTION MAJOR JT/BURSA 021 12:00:00 AM EST [facility] ([facility]) ARTHROCENTESIS ASPIR&/INJECTION MAJOR JT/BURSA 021 12:00:00 AM EST [facility] ([facility]) ARTHROCENTESIS ASPIR&/INJECTION MAJOR JT/BURSA 12:00:00 AM EDT [facility] ([facility]) ARTHROCENTESIS ASPIR&/INJECTION MAJOR JT/BURSA 12:00:00 AM EDT [facility] ([facility]) ARTHROCENTESIS ASPIR&/INJECTION MAJOR JT/BURSA 12:00:00 AM EDT [facility] ([facility]) Results ID Date Data Source [id number] 09/27/2020 09:35:00 AM EST [facility] ([facility] Name Value Range Interpretation Code Description Data Carisa rce(s) Supporting Document(s) Laboratory test finding (navigational concept) Laboratory test result [facility] ([facility] Test: COVID-19 Nasal/Naspharynx Result: POSITIVE for 2019-nCoV Reference Units: Not detected NOTE: The COVID-19 assay is under Emergency Use Authorization(EUA) by the U.S. Food and Drug Administration. [facility] is designated as a high complexity laboratory by the Clinical Laboratory Improvement Amendments of 1988(CLIA) and is qualified to perform this test. ASSAY INFORMATION: Real Time RT-PCR Procedure Social History Code Duration Value Status Description Data Source(s ) Smoking 07/25/2020 12:00:00 AM EST Patient is a former smoker completed Patient is a former smoker [facility] ([facility] Vital Signs ID Date Data Source UNK Name Value Range Interpretation Code Description Data Source(s) Body mass index (BMI) [Ratio] 27.3 kg/m2 27.3 k g/m2 [facility] ([facility] [place] body weight 100 [lb_av] 100 [lb_av] [facility] T ([facility] Oxygen saturation in Arterial blood by Pulse oximetry 98 % 98 % [facility] ([facility] Body weight 140.00 [lb_av] 140.00 [lb_av] [facility] T ([facility] Body height 60 [in_i] 60 [in_i] [facility] ([facility] 5'0" Respiratory rate 17 /min 17 /min [facility] ( [facility] Body temperature 97.6 [degF] 97.6 [degF] [facility] ([facility] Heart rate 72 /min 72 /min [facility] ([facility] Diastolic blood pressure 74 mm[Hg] 74 mm[Hg] [facility] ([facility] Systolic blood pressure 129 mm[Hg] 129 mm[Hg] [facility] ([facility] Diastolic blood pressure 79 mm[Hg] 79 mm[Hg] [facility] ([facility] Systolic blood pressure 169 mm[Hg] 169 mm[Hg] [facility] Body mass index (BMI) [Ratio] 28.3 kg/m2 28.3 k g/m2 [facility] ([facility] [place] body weight 100 [lb_av] 100 [lb_av] [facility] T ([facility] Oxygen saturation in Arterial blood by Pulse oximetry 98 % 98 % [facility] ([facility] Body weight 145.00 [lb_av] 145.00 [lb_av] [facility] ([facility] Body height 60 [in_i] 60 [in_i] [facility] ([facility] 5'0" Respiratory rate 20 /min 20 /min [facility] ( [facility] Body temperature 97.2 [degF] 97.2 [degF] [facility] ([facility] Heart rate 74 /min 74 /min [facility] ([facility] Diastolic blood pressure 68 mm[Hg] 68 mm[Hg] [facility] ([facility] Systolic blood pressure 147 mm[Hg] 147 mm[Hg] [facility] ([facility] Diastolic blood pressure 67 mm[Hg] 67 mm[Hg] [facility] ([facility] Systolic blood pressure 171 mm[Hg] 171 mm[Hg] [facility] Body mass index (BMI) [Ratio] 28.0 kg/m2 28.0 k g/m2 [facility] ([facility] Oxygen saturation in Arterial blood by Pulse oximetry 98 % 98 % [facility] ([facility] Body weight 143.50 [lb_av] 143.50 [lb_av] [facility] ([facility] Body height 60 [in_i] 60 [in_i] [facility] ([facility] 5'0" Respiratory rate 15 /min 15 /min [facility] ( [facility] Body temperature 97.7 [degF] 97.7 [degF] [facility] ([facility] Heart rate 75 /min 75 /min [facility] ([facility] Diastolic blood pressure 69 mm[Hg] 69 mm[Hg] [facility] ([facility] Systolic blood pressure 160 mm[Hg] 160 mm[Hg] M [facility] ([facility] Diastolic blood pressure 60 mm[Hg] 60 mm[Hg] [facility] ([facility] Systolic blood pressure 161 mm[Hg] 161 mm[Hg] M [facility] ([facility] Body mass index (BMI) [Ratio] 28.0 kg/m2 28.0 k g/m2 [facility] ([facility] Oxygen saturation in Arterial blood by Pulse oximetry 98 % 98 % [facility] ([facility] Body weight 143.50 [lb_av] 143.50 [lb_av] [facility] T ([facility] Body height 60.0 [in_i] 60.0 [in_i] [facility] ([facility] 5'0" Respiratory rate 15 /min 15 /min [facility] ( [facility] Body temperature 97.7 [degF] 97.7 [degF] [facility] ([facility] Heart rate 75 /min 75 /min [facility] ([facility] Diastolic blood pressure 69 mm[Hg] 69 mm[Hg] [facility] ([facility] P-72 Systolic blood pressure 160 mm[Hg] 160 mm[Hg] M [facility] ([facility] P-72 Diastolic blood pressure 60 mm[Hg] 60 mm[Hg] [facility] ([facility] Systolic blood pressure 161 mm[Hg] 161 mm[Hg] M [facility] ([facility] Body mass index (BMI) [Ratio] 27.4 kg/m2 27.4 k g/m2 [facility] ([facility] Oxygen saturation in Arterial blood by Pulse oximetry 98 % 98 % [facility] ([facility] Body weight 140.12 [lb_av] 140.12 [lb_av] [facility] T ([facility] Body height 60.0 [in_i] 60.0 [in_i] [facility] ([facility] 5'0" Respiratory rate 16 /min 16 /min [facility] ( [facility] Body temperature 97.6 [degF] 97.6 [degF] [facility] ([facility] Heart rate 69 /min 69 /min [facility] ([facility] Diastolic blood pressure 72 mm[Hg] 72 mm[Hg] [facility] ([facility] la Systolic blood pressure 143 mm[Hg] 143 mm[Hg] M [facility] ([facility] la Diastolic blood pressure 80 mm[Hg] 80 mm[Hg] [facility] ([facility] la Systolic blood pressure 162 mm[Hg] 162 mm[Hg] M [facility] ([facility] la Body mass index (BMI) [Ratio] 27.4 kg/m2 27.4 k g/m2 [facility] ([facility] Body weight 140.50 [lb_av] 140.50 [lb_av] [facility] ([facility] Body height 60.0 [in_i] 60.0 [in_i] [facility] ([facility] 5'0" Respiratory rate 16 /min 16 /min [facility] ( [facility] Body temperature 98.4 [degF] 98.4 [degF] [facility] ([facility] Heart rate 72 /min 72 /min [facility] ([facility] Diastolic blood pressure 78 mm[Hg] 78 mm[Hg] [facility] ([facility] recheck Systolic blood pressure 158 mm[Hg] 158 mm[Hg] M [facility] ([facility] recheck Diastolic blood pressure 75 mm[Hg] 75 mm[Hg] [facility] ([facility] Systolic blood pressure 163 mm[Hg] 163 mm[Hg] M [facility] ([facility]
[2020-10-20] MEDS ORDERED: PANTOPRAZOLE 40MG VIAL (C9113 PER 1) IV ONE (06:00)
[2020-10-20 06:11] LABS: BASO % 0.3 % (0.0-1.0); EOS # 0.2 10^3/uL (0.0-0.5); EOS % 1.3 % (0.0-3.0); HEMATOCRIT 22.3 % (36.0-47.0); LYMPH # 2.8 10^3/uL (1.5-5.0); LYMPH % 22.8 % (24.0-44.0); MEAN CORPUSCULAR HGB CONC 31.4 g/dl (32.0-36.5); MEAN CORPUSCULAR VOLUME 95.7 fl (80.0-96.0); MONO # 0.8 10^3/uL (0.0-0.8); MONO % 6.5 % (2.0-8.0); NEUTROPHILS # 8.4 10^3/uL (1.5-8.5); NEUTROPHILS % 68.5 % (36.0-66.0); PLATELET COUNT, AUTOMATED 259 10^3/uL (150-450); RED BLOOD COUNT 2.33 10^6/uL (4.00-5.40); WHITE BLOOD COUNT 12.2 10^3/uL (4.0-10.0)
[2020-10-20] MEDS: PANTOPRAZOLE SODIUM 40 MG in D5W 50 ML IV SCH ×3 (06:19→16:46)
[2020-10-20] MEDS ORDERED: LISI10TA22 PO (06:31)
[2020-10-20] MEDS ORDERED: VITA200016 PO (06:32)
[2020-10-20 06:36] LABS: CK-MB VALUE MASS < 1.0 NG/ML (<3.6); CPK CREATINE PHOSPHOKINASE 27 U/L (26-192); TROPONIN I < 0.02 NG/ML (< 0.10)
--- OUTSIDE RECORDS SUMMARY | 2020-10-20 06:37 | CCD ---
Author [facility] Address Unknown Phone Unavailable Care Team Providers Care Photographic Process Screen Maker Name Role Phone Nayan Landaverde MD Unavailable [...] Unavailable Akhil, Nayan Doty MD Unavailable Unavailable Ahkil, Nayan Doty MD Unavailable Unavailable Akhil, Nayan [...] Nayan Doty MD Unavailable Unavailable Akhil, Nayan Doyt MD Unavailable Unavailable Akhil, A Lalitha DUENAS [...] Akhil, A Lalitha DUENAS Unavailable Unavailable Akhil, Nayan Doty MD Unavailable Unavailable Pleskach, Komal INDUSTRIAL RELATIONS REPRESENTATIVE Unavailable Unavailable Pleskach, Komal INDUSTRIAL RELATIONS REPRESENTATIVE Unavailable Unavailable Pleskach, Komal INDUSTRIAL RELATIONS REPRESENTATIVE Unavailable Unavailable Pleskach, Komal INDUSTRIAL RELATIONS REPRESENTATIVE Unavailable Unavailable Pleskach, Komal INDUSTRIAL RELATIONS REPRESENTATIVE Unavailable Unavailable Pleskach, Komal INDUSTRIAL RELATIONS REPRESENTATIVE Unavailable Unavailable Pleskach, Komal INDUSTRIAL RELATIONS REPRESENTATIVE Unavailable Unavailable Pleskach, Komal INDUSTRIAL RELATIONS REPRESENTATIVE Unavailable Unavailable Pleskach, Komal INDUSTRIAL RELATIONS REPRESENTATIVE Unavailable Unavailable Pleskach, Komal INDUSTRIAL RELATIONS REPRESENTATIVE Unavailable Unavailable Pleskach, Komal INDUSTRIAL RELATIONS REPRESENTATIVE Unavailable Unavailable Pleskach, Komal INDUSTRIAL RELATIONS REPRESENTATIVE Unavailable Unavailable Pleskach, Komal INDUSTRIAL RELATIONS REPRESENTATIVE Unavailable Unavailable Pleskach, Komal INDUSTRIAL RELATIONS REPRESENTATIVE Unavailable Unavailable Pleskach, Komal INDUSTRIAL RELATIONS REPRESENTATIVE Unavailable Unavailable Pleskach, Komal INDUSTRIAL RELATIONS REPRESENTATIVE Unavailable Unavailable Pleskach, Komal INDUSTRIAL RELATIONS REPRESENTATIVE Unavailable Unavailable Pleskach, Komal INDUSTRIAL RELATIONS REPRESENTATIVE Unavailable Unavailable Pleskach, Komal INDUSTRIAL RELATIONS REPRESENTATIVE Unavailable Unavailable Pleskach, Komal INDUSTRIAL RELATIONS REPRESENTATIVE Unavailable Unavailable Pleskach, Komal INDUSTRIAL RELATIONS REPRESENTATIVE Unavailable Unavailable Pleskach, Komal INDUSTRIAL RELATIONS REPRESENTATIVE Unavailable Unavailable Pleskach, Komal INDUSTRIAL RELATIONS REPRESENTATIVE Unavailable Unavailable Pleskach, Komal INDUSTRIAL RELATIONS REPRESENTATIVE Unavailable Unavailable Pleskach, Komal INDUSTRIAL RELATIONS REPRESENTATIVE Unavailable Unavailable Pleskach, Komal INDUSTRIAL RELATIONS REPRESENTATIVE Unavailable Unavailable Pleskach, Komal INDUSTRIAL RELATIONS REPRESENTATIVE Unavailable Unavailable Pleskach, Komal INDUSTRIAL RELATIONS REPRESENTATIVE Unavailable Unavailable Pleskach, Komal INDUSTRIAL RELATIONS REPRESENTATIVE Unavailable Unavailable Pleskach, Komal INDUSTRIAL RELATIONS REPRESENTATIVE Unavailable Unavailable Comer, M Barratt PA Unavailable [...] is protected by Article 27-F of the [facility] Public Health law. If you continue you may have access to information: Regarding HIV / AIDS; Provided by facilities licensed or operated by the [facility] Office of Mental Health; or Provided by the [facility] Office for People With Developmental Disabilities. If such information is present, then the following [facility] mandated warning applies: This information has [...] law may result in a fine or fdc sentence or both. A general authorization for the release of medical or other information is NOT sufficient authorization for further disc losure. Family History Family Member Name Family Member Gender Family Member Status Date o f Status Description Data Source(s) Unknown Unknown Problem [facility] ([facility]) Unknown Unknown Problem [facility] Unknown Female Problem [facility] ([facility]) Unknown Female Problem [facility] ([facility]) Encounters Encounter Providers Location Date Indications Data Source(s ) Office Visit Attender: Young VALLADARES Physical Therapy 10:00:00 AM EST [facility] ([facility]) Office Visit Attender: Young VALLADARES Physical Therapy 09:30:00 AM EST [facility] ([facility]) Outpatient Attender: Lalitha Landaverde MD Main Office 07/25/2020 10:15:0 0 AM EST [facility] ([facility] Outpatient Attender: Komal Rosales [facility] Main Office 03/23/2020 0 8:15:00 AM EDT [facility] ([facility] Outpatient Attender: Lalitha Landaverde MD Main Office 01/04/2020 08:15:0 0 AM EDT [facility] ([facility] Outpatient Attender: Komal BUCHANANP Main Office 10/14/2019 0 9:45:00 AM EST [...] Euflexxa 02/09/2020 12:00:00 AM EDT active [facility] ([facility] ) Lisinopril 10 MG Oral Tablet Lisinopril 09/15/2019 12:00:00 AM EST active [facility] ([facility] Insurance Providers Payer name Policy type / Coverage type Policy ID Covered democrat ID Covered democrat's relationship to ayala Policy Ayala Plan Information MEDICARE [id number] SP [id number] [id number] [facility] [id number] SP [id number] [facility] [id number] SP [id number] SELF PAY ONLY [id number] SP [id number] [facility] O [id number] S [id number] MEDICARE C [id number] S [id number] MEDICARE [id number] SP [id number] D [facility] Medigap Part B [id number] Self [id number] [place] Primary [id number] Self [id number] [facility] Medigap Part B [id number] Self [id number] [place] Medicare Primary [id number] Self [id number] [employer] Medigap Part B [id number] Self [id number] [place] Medicare Primary [id number] Self [id number] [employer] Medigap Part B [id number] Self [id number] Medicare [place] Medicare Primary [id number] Self [id number] [employer] Medigap Part B [id number] Self [id number] [place] Medicare Primary [id number] Self [id number] [employer] Medigap Part B [id number] Self [id number] Medicare [place] Medicare Primary [id number] Self [id number] Emp/United Healthcare Medigap Part B [id number] Self [id number] [place] Medicare Primary [id number] Self [id number] [employer] Medigap Part B [id number] Self [id number] Medicare [place] Medicare Primary [id number] Self [id number] [employer] Medigap Part B [id number] Self [id number] [place] Medicare Primary [id number] Self [id number] [facility] [employer] Plan Medigap Part B [id number] Self [id number] [place] Medicare Primary [id number] Self [id number] [employer] Medigap Part B [id number] Self [id number] [place] Medicare Primary [id number] Self [id number] [employer] Medigap Part B [id number] Self [id number] Medicare [place] Medicare Primary [id number] Self [id number] [employer] Medigap Part B [id number] Self [id number] Medicare [place] Medicare Primary [id number] Self [id number] [employer] Medigap Part B [id number] Self [id number] Medicare [place] Medicare Primary [id number] Self [id number] [place] O [id number] S [id number] MEDICARE C [id number] S [id number] D Emp/United [employer] Medigap Part B [id number] Self [id number] Medicare [place] Medicare Primary [id number] Self [id number] Emp/[employer] Medigap Part B [id number] Self [id number] Medicare [place] Medicare Primary [id number] Self [id number] [employer] Medigap Part B [id number] Self [id number] Medicare [place] Medicare Primary [id number] Self [id number] [facility] [id number] SP [id number] Emp/[employer] Medigap Part B [id number] Self [id number] Medicare [place] Medicare Primary [id number] Self [id number] Emp/[employer] Medigap Part B [id number] Self [id number] Medicare [place] Medicare Primary [id number] Self [id number] [employer] Medigap Part B [id number] Self [id number] Medicare [place] Medicare Primary [id number] Self [id number] [employer] Medigap Part B [id number] Self [id number] Medicare [place] Medicare Primary [id number] Self [id number] [employer] Medigap Part B [id number] Self [id number] Medicare [place] Medicare Primary [id number] Self [id number] Emp/[employer] Medigap Part B [id number] Self [id number] Medicare [place] Medicare Primary [id number] Self [id number] Emp/[employer] Medigap Part B Self Medicare [place] Medicare Primary Self [employer] Medigap Part B Self Medicare [place] Medicare Primary Self [facility] [id number] SP [id number] D Problems, Conditions, and Diagnoses Code Display Name Description Problem Type Effective Dates Data Source(s) 18928595 Spinal stenosis of lumbar region Spinal stenosis of lumbar region Problem 07/27/2020 12:00:00 AM EST [facility] ([facility] [id number] Essential hypertension Essential hypertension Problem 07/27/2020 12:00:00 AM EST [facility] ([facility] Surgeries/Procedures Procedure Description Date Indications Data Source(s) ARTHROCENTESIS ASPIR&/INJECTION MAJOR JT/BURSA 021 12:00:00 AM EST [facility] ([facility]) ARTHROCENTESIS ASPIR&/INJECTION MAJOR JT/BURSA 021 12:00:00 AM EST [facility] ([facility]) ARTHROCENTESIS ASPIR&/INJECTION MAJOR JT/BURSA 020 12:00:00 AM EDT [facility] ([facility]) ARTHROCENTESIS ASPIR&/INJECTION MAJOR JT/BURSA 020 12:00:00 AM EDT [facility] ([facility]) ARTHROCENTESIS ASPIR&/INJECTION MAJOR JT/BURSA 020 12:00:00 AM EDT [facility] ([facility]) Results ID Date Data Source [id number] 09/27/2020 09:35:00 AM EST [facility] ([facility] Name Value Range Interpretation Code Description Data Carisa rce(s) Supporting Document(s) Laboratory test finding (navigational concept) Laboratory test result [facility] ([facility] Test: COVID-19 Nasal/Naspharynx Result: POSITIVE for 2019-nCoV Reference Units: Not detected NOTE: The COVID-19 assay is under Emergency Use Authorization(EUA) by the U.S. Food and Drug Administration. [facility] is designated as a high complexity laboratory [...] k g/m2 [facility] ([facility] [place] body weight 100 [lb_av] 100 [lb_av] MEDEN [...] Systolic blood pressure 129 mm[Hg] 129 mm[Hg] M [facility]ENT ([facility] Diastolic blood pressure 79 mm[Hg] 79 mm[Hg] [facility] ([facility] Systolic blood pressure 169 mm[Hg] 169 mm[Hg] M [facility] ([facility] Body mass index (BMI) [Ratio] 28.3 kg/m2 28.3 k g/m2 [facility] ([facility] [place] body weight 100 [lb_av] 100 [lb_av] MEDEN [...] pressure 171 mm[Hg] 171 [facility]] [facility] Body mass [...] pressure 158 mm[Hg] 158 mm[Hg] M [facility] ([facility] recheck Diastolic blood pressure 75 mm[Hg] 75 mm[Hg] [facility] ([facility] Systolic blood pressure 163 mm[Hg] 163 mm[Hg] M [facility] ([facility]
[2020-10-20] MEDS ORDERED: MAGN200T PO (06:39)
--- NOTE | 2020-10-20 06:47 | REPVR ---
PROCEDURE INFORMATION: Exam: XR Chest, 1 View Exam date and time: 10/20/2020 6:14 AM Age: 80 years old Clinical indication: Other: Syncope TECHNIQUE: Imaging protocol: XR of the chest Views: 1 view. COMPARISON: No relevant prior studies available. FINDINGS: Lungs: Mild interstitial prominence without acute airspace disease. Pleural spaces: No pleural effusion. Heart/Mediastinum: No cardiomegaly. Vasculature: Enlargement and tortuosity of the thoracic aorta. Bones/joints: Degenerative change. IMPRESSION: No acute airspace or pleural disease. Electronically signed by: Damien Koch On 10/20/2020 06:47:37 AM
[2020-10-20] MEDS ORDERED: NS 500 ML IV ONE (07:15)
--- OUTSIDE RECORDS SUMMARY | 2020-10-20 07:18 | CCD ---
Author [facility] Address Unknown Phone Unavailable Care Team Providers Care Data Governance Analyst Name Role Phone Nayan Landaverde MD Unavailable [...] Doty MD Unavailable Unavailable Akhil, A Lalitha DUENAS [...] Nayan Doty MD Unavailable Unavailable Pleskach, Komal ENVIRONMENTAL SAFETY SPECIALIST Unavailable Unavailable Pleskach, Komal ENVIRONMENTAL SAFETY SPECIALIST Unavailable Unavailable Pleskach, Komal ENVIRONMENTAL SAFETY SPECIALIST Unavailable Unavailable Pleskach, Komal ENVIRONMENTAL SAFETY SPECIALIST Unavailable Unavailable Pleskach, Komal ENVIRONMENTAL SAFETY SPECIALIST Unavailable Unavailable Pleskach, Komal ENVIRONMENTAL SAFETY SPECIALIST Unavailable Unavailable Pleskach, Komal ENVIRONMENTAL SAFETY SPECIALIST Unavailable Unavailable Pleskach, Komal ENVIRONMENTAL SAFETY SPECIALIST Unavailable Unavailable Pleskach, Komal ENVIRONMENTAL SAFETY SPECIALIST Unavailable Unavailable Pleskach, Komal ENVIRONMENTAL SAFETY SPECIALIST Unavailable Unavailable Pleskach, Komal ENVIRONMENTAL SAFETY SPECIALIST Unavailable Unavailable Pleskach, Komal ENVIRONMENTAL SAFETY SPECIALIST Unavailable Unavailable Pleskach, Komal ENVIRONMENTAL SAFETY SPECIALIST Unavailable Unavailable Pleskach, Komal ENVIRONMENTAL SAFETY SPECIALIST Unavailable Unavailable Pleskach, Komal ENVIRONMENTAL SAFETY SPECIALIST Unavailable Unavailable Pleskach, Komal ENVIRONMENTAL SAFETY SPECIALIST Unavailable Unavailable Pleskach, Komal ENVIRONMENTAL SAFETY SPECIALIST Unavailable Unavailable Pleskach, Komal ENVIRONMENTAL SAFETY SPECIALIST Unavailable Unavailable Pleskach, Komal ENVIRONMENTAL SAFETY SPECIALIST Unavailable Unavailable Pleskach, Komal ENVIRONMENTAL SAFETY SPECIALIST Unavailable Unavailable Pleskach, Komal ENVIRONMENTAL SAFETY SPECIALIST Unavailable Unavailable Pleskach, Komal ENVIRONMENTAL SAFETY SPECIALIST Unavailable Unavailable Pleskach, Komal ENVIRONMENTAL SAFETY SPECIALIST Unavailable Unavailable Pleskach, Komal ENVIRONMENTAL SAFETY SPECIALIST Unavailable Unavailable Pleskach, Komal ENVIRONMENTAL SAFETY SPECIALIST Unavailable Unavailable Pleskach, Komal ENVIRONMENTAL SAFETY SPECIALIST Unavailable Unavailable Pleskach, Komal ENVIRONMENTAL SAFETY SPECIALIST Unavailable Unavailable Pleskach, Komal ENVIRONMENTAL SAFETY SPECIALIST Unavailable Unavailable Pleskach, Komal ENVIRONMENTAL SAFETY SPECIALIST Unavailable Unavailable Pleskach, Komal ENVIRONMENTAL SAFETY SPECIALIST Unavailable Unavailable Comer, M Barratt PA Unavailable [...] by Article 27-F of the [facility] Public Health law. If you continue you may have access to information: Regarding HIV / AIDS; Provided by facilities licensed or operated by the [facility] Office of Mental Health; or Provided by the [facility] Office for People With Developmental Disabilities. If such information is present, then the following [facility] mandated warning applies: This information has [...] law may result in a fine or alf sentence or both. A general authorization for the release of medical or other information is NOT sufficient authorization for further disc losure. Family History Family Member Name Family Member Gender Family Member Status Date o f Status Description Data Source(s) Unknown Unknown Problem [facility] ([facility]) Unknown Unknown Problem [facility] Unknown Female Problem [facility] ([facility]) Unknown Female Problem [facility] ([facility]) Encounters Encounter Providers Location Date Indications Data Source(s ) Office Visit Attender: Young VALLADARES Physical Therapy 10:00:00 AM EST [facility] ([facility]) Office Visit Attender: Young VALLADARES Physical Therapy 09:30:00 AM EST [facility] ([facility]) Outpatient Attender: Lalitha Landaverde MD Main Office 07/25/2020 10:15:0 0 AM EST [facility] ([facility] Outpatient Attender: Komal Rosales [facility] Main Office 03/23/2020 0 8:15:00 AM EDT [...] Euflexxa 02/09/2020 12:00:00 AM EDT active [facility] ([facility] ) Lisinopril 10 MG Oral Tablet Lisinopril 09/15/2019 12:00:00 AM EST active [facility] ([facility] Insurance Providers Payer name Policy type / Coverage type Policy ID Covered alliance party ID Covered alliance party's relationship to ayala Policy Ayala Plan Information MEDICARE [id number] SP [id number] [facility] [id number] SP [id number] [facility] [id number] SP [id number] SELF PAY ONLY [id number] SP [id number] [facility] O [id number] S [id number] MEDICARE C [id number] S [id number] MEDICARE [id number] SP [id number] D [facility] Medigap Part B [id number] Self [id number] [place] Medicare Primary [id number] Self [id number] [facility] Medigap Part B [id number] Self [id number] Medicare [place] Medicare Primary [id number] Self [id number] [place] [employer] [facility] Medigap Part B [id number] Self [id number] [place] Medicare Primary [id number] Self [id number] [place] [employer] Medigap Part B [id number] Self [id number] Medicare [place] Medicare Primary [id number] Self [id number] [place] [employer] Medigap Part B [id number] Self [id number] Medicare [place] Medicare Primary [id number] Self [id number] [place] [employer] Medigap Part B [id number] Self [id number] Medicare [place] Medicare Primary [id number] Self [id number] Emp/[employer] Medigap Part B [id number] Self [id number] Medicare [place] Medicare Primary [id number] Self [id number] [place] [employer] Medigap Part B [id number] Self [id number] Medicare [place] Medicare Primary [id number] Self [id number] [place] [employer] Medigap Part B [id number] Self [id number] [place] Medicare Primary [id number] Self [id number] [facility] [place] [facility] Medigap Part B [id number] Self [id number] Medicare [place] Medicare Primary [id number] Self [id number] [place] [employer] Medigap Part B [id number] Self [id number] Medicare [place] Medicare Primary [id number] Self [id number] [place] [employer] Medigap Part B [id number] Self [id number] Medicare [place] Medicare Primary [id number] Self [id number] [place] [employer] Medigap Part B [id number] Self [id number] Medicare [place] Medicare Primary [id number] Self [id number] [place] [employer] Medigap Part B [id number] Self [id number] Medicare [place] Medicare Primary [id number] Self [id number] [employer] [employer]) O [id number] S [id number] MEDICARE C [id number] S [id number] D Emp/[employer] Medigap Part B [id number] Self [id number] Medicare [place] Medicare Primary [id number] Self [id number] Emp/[employer] Medigap Part B [id number] Self [id number] Medicare [place] Medicare Primary [id number] Self [id number] [place] [employer] Medigap Part B [id number] Self [id number] Medicare [place] Medicare Primary [id number] Self [id number] [facility]ALTH[facility] [id number] SP [id number] Emp/[employer] Medigap Part B [id number] Self [id number] Medicare [place] Medicare Primary [id number] Self [id number] Emp/[employer] Medigap Part B [id number] Self [id number] Medicare [place] Medicare Primary [id number] Self [id number] [place] [employer] Medigap Part B [id number] Self [id number] Medicare [place] Medicare Primary [id number] Self [id number] [place] [employer] Medigap Part B [id number] Self [id number] Medicare [place] Medicare Primary [id number] Self [id number] [place] [employer] Medigap Part B [id number] Self [id number] Medicare [place] Medicare Primary [id number] Self [id number] Emp/[employer] Medigap Part B [id number] Self [id number] Medicare [place] Medicare Primary [id number] Self [id number] Emp/[employer] Medigap Part B Self Medicare [place] Medicare Primary Self [place] [employer] Medigap Part B Self Medicare [place] Medicare Primary Self [facility] [id number] SP [id number] D Problems, Conditions, and Diagnoses Code Display Name Description Problem Type Effective Dates Data Source(s) 02562048 Spinal stenosis of lumbar region Spinal stenosis of lumbar region Problem 07/27/2020 12:00:00 AM EST [facility] ([facility] [id number] Essential hypertension Essential hypertension Problem 07/27/2020 12:00:00 AM EST [facility] ([facility] Surgeries/Procedures Procedure Description Date Indications Data Source(s) ARTHROCENTESIS ASPIR&/INJECTION MAJOR JT/BURSA 021 12:00:00 AM EST [facility] ([facility]) ARTHROCENTESIS ASPIR&/INJECTION MAJOR JT/BURSA 021 12:00:00 AM EST [facility] ([facility]) ARTHROCENTESIS ASPIR&/INJECTION MAJOR JT/BURSA 020 12:00:00 AM EDT [facility] ([facility]) ARTHROCENTESIS ASPIR&/INJECTION MAJOR JT/BURSA 020 12:00:00 AM EDT [facility] ([facility]) ARTHROCENTESIS ASPIR&/INJECTION MAJOR JT/BURSA 020 12:00:00 AM EDT [facility] ([facility]) Results ID Date Data Source [id number] 09/27/2020 09:35:00 AM EST [facility] ([facility] Name Value Range Interpretation Code Description Data Carisa rce(s) Supporting Document(s) Laboratory test finding (navigational concept) Laboratory test result [facility] ([facility] Test: COVID-19 Nasal/Naspharynx Result: POSITIVE for 2019-nCoV Reference Units: Not detected NOTE: The COVID-19 assay is under Emergency Use Authorization(EUA) by the U.S. Food and Drug Administration. [employer] [facility] is designated as a high complexity laboratory [...] k g/m2 [facility] ([facility] [place] body weight 100 [lb_av] 100 [lb_av] MEDEN [...] blood pressure 79 mm[Hg] 79 mm[Hg] [facility] ([facility] Systolic blood pressure 169 mm[Hg] 169 mm[Hg] M [facility] ([facility] Body mass index (BMI) [Ratio] 28.3 kg/m2 28.3 k g/m2 [facility] ([facility] [place] body weight 100 [lb_av] 100 [lb_av] MEDEN [...] Systolic blood pressure 171 mm[Hg] 171 [facility] Body mass index [...] pressure 69 mm[Hg] 69 mm[Hg] [facility] ([facility] P-72 Systolic blood pressure 160 [...] pressure 80 mm[Hg] 80 mm[Hg] [facility] ([facility] la Systolic blood pressure 162 [...] Body temperature 98.4 [degF] 98.4 [degF] [facility] ([facility] Heart rate 72 /min [...]
[2020-10-20] MEDS: SUCRALFATE SUSP 1GM/10ML UD PO SCH ×3 (07:26→18:28)
--- NOTE | 2020-10-20 12:25 | HPEPDOC ---
[facility] Medical History & Physical Date of Admission Oct 20, 2020 Date of Service: Oct 20, 2020 History and Physical CHIEF COMPLAINT: Lightheaded and dizzy for the past 2 days, black tarry stool HISTORY OF PRESENT ILLNESS: 80-year-old female on chronic aspirin, with past medical history significant for hypertension, history of brain aneurysm status post coil 25 years ago. Vitamin D deficiency. Dry eyes, tested positive for Sagastume virus. 19 On 09/27/2020, received Covid-19 vaccine on 10/04/2020 and has had no coronavirus 19 symptoms of fever, chills, loss of taste, nausea, vomiting, abdominal pain, shortness of breath, cough after testing positive, now presents to emergency room with 2 day history of lightheadedness and dizziness, feeling like she is about to fall .while she was in the bathroom this morning the patient felt that she was going to fall forward into the vanity so she got herself down to the floor in stable are little while crawled into her bedroom and called her daughter for help. Patient had black tarry stools and vomited once with black emesis which she thought was because of the Coca-Cola She was drinking. In the emergency room, she was orthostatic and anemic. Her diuretics were held and she consented to receive RBC transfusion. Hospitalist was called to admit for symptomatic anemia, acute blood loss anemia due to GI bleed. Previous 02/03/[address] Lakhani showing colonic polyps in the distal ascending colon and diverticulosis without diverticulitis PAST MEDICAL HISTORY: hypertension, history of brain aneurysm status post coil 25 years ago. Vitamin D deficiency. Dry eyes, tested positive for Sagastume virus. 19 On 09/27/2020, received Covid-19 vaccine on 10/04/2020 and has had no coronavirus 19 symptoms,02/03/[address] Lakhani showing colonic polyps in the distal ascending colon and diverticulosis without diverticulitis, symptomatic prolapse requiring sacrospinous suspension with anterior-posterior repair and cystourethroscopy PAST SURGICAL HISTORY: 02/03/[address] Lakhani showing colonic polyps in the distal ascending colon and diverticulosis without diverticulitis, 04/30/2019, Dr. Sana Velasquez-symptomatic prolapse requiring sacrospinous suspension with anterior-posterior repair and cystourethroscopy SOCIAL HISTORY: Retired, previously worked for the [employer]. Denies any cigarette use, but admits to drinking wine about 3-4 times a week. Denies alcohol abuse. No recreational drug use FAMILY HISTORY: Noncontributory due to advanced age ALLERGIES: Please see below. REVIEW OF SYSTEMS: 12 point review of systems negative aside from positive findings in HPI HOME MEDICATIONS: Please see below. PHYSICAL EXAMINATION: VITAL SIGNS: See below GENERAL APPEARANCE: Awake, alert, oriented 3, laying flat on the hospital bed with no distress, able to speak in full sentences. Slight pallor. No icterus or cyanosis HEENT: Face is symmetric. Tongue is midline. Moist mucous membranes. No JVD, thyromegaly or cervical lymphadenopathy CARDIOVASCULAR: S1, S2 regular rate rhythm, no murmurs, rubs or gallops LUNGS: Air entry is equal bilaterally. Clear to auscultation. No wheezing, rales or rhonchi ABDOMEN: Positive bowel sounds, soft, nontender, nondistended. No rebound or guarding. No hepatosplenomegaly EXTREMITIES: No cyanosis, clubbing or pitting edema LABORATORY DATA: See below. MICROBIOLOGY: Please see below. ASSESSMENT: 80-year-old female on chronic aspirin, with past medical history significant for hypertension, history of brain aneurysm status post coil 25 years ago. Vitamin D deficiency. Dry eyes, tested positive for Sagastume virus. 19 On 09/27/2020, received Covid-19 vaccine on 10/04/2020 and has had no coronavirus 19 symptoms of fever, chills, loss of taste, nausea, vomiting, abdominal pain, shortness of breath, cough after testing positive, now presents to emergency room with 2 day history of lightheadedness and dizziness, feeling like she is about to fall .[place] she was in the bathroom this morning the patient felt that she was going to fall forward into the vanity so she got herself down to the floor in stable are little while crawled into her bedroom and called her daughter for help. Patient had black tarry stools and vomited once with black emesis which she thought was because of the Coca-Cola She was drinking. In the emergency room, she was ort hostatic and anemic. Her diuretics were held and she consented to receive RBC transfusion. Hospitalist was called to admit for symptomatic anemia, acute blood loss anemia due to GI bleed. Previous 02/03/[address] Lakhani showing colonic polyps in the distal ascending colon and diverticulosis without diverticulitis. Patient is admitted for acute blood loss anemia and symptomatic anemia from suspected upper GI bleed in the setting of chronic aspirin use. Acute blood loss anemia -Patient has symptomatic anemia with complaints of lightheadedness, dizziness and near syncope at home. She will be admitted as an inpatient for 2 midnights for evaluation of GI bleed, most likely upper bleed in light of chronic aspirin use and history of chronic alcohol use despite denying history of alcohol abuse. She is currently nothing by mouth with IV protonix gtt. Dr. Florin Chappell. [facility] al surgery has been consulted for EGD. IV fluids for now and hypoglycemic protocol with fingersticks every 6 hours while nothing by mouth to prevent hypoglycemia. Aspirin has been held compression stockings for DVT prophylaxis Symptomatic anemia with near syncope nothing by mouth with IV protonix gtt. Dr. Florin Chappell. General surgery has been consulted for EGD. IV fluids for now and hypoglycemic protocol with fingersticks every 6 hours while nothing by mouth to prevent hypoglycemia. She was orthostatic and her blood pressure medications have been held temporarily Orthostatic hypotension -due to blood pressure medications and acute GI bleed with GI blood loss. Currently in IV fluids. RBC has been transfused 2 units., Holding blood pressure medications Acute GI bleed hypertension, Currently orthostatic. Hold blood pressure medications history of brain aneurysm status post coil 25 years ago. . No acute complaints Vitamin D deficiency. May continue home medications once oral intake is resumed Dry eyes, May continue home medications once oral intake is resumed Sagastume virus- 19 positive On 09/27/2020, received Covid-19 vaccine on 10/04/2020 and has had no coronavirus 19 symptoms Diverticulosis with colonic polyp , Chronic DVT prophylaxis compression stockings Vital Signs Vital Signs Date Time Temp Pulse Resp B/P (MAP) Pulse Ox O2 Delivery O2 Flow Rate FiO2 10/20/20 11:35 97.6 95 20 119/67 100 Room Air Laboratory Data Labs 24H Laboratory Tests 2 10/20/20 05:58: Immature Granulocyte % (Auto) 0.6, Neutrophils (%) (Auto) 68.5H, Lymphocytes (%) (Auto) 22.8L, Monocytes (%) (Auto) 6.5, Eosinophils (%) (Auto) 1.3, Basophils (%) (Auto) 0.3, Neutrophils # (Auto) 8.4, Lymphocytes # (Auto) 2.8, Monocytes # (Auto) 0.8, Eosinophils # (Auto) 0.2, Basophils # (Auto) 0.0, Nucleated Red Blood Cells % (auto) 0.0, Total Creatine Kinase 27, Creatine Kinase MB < 1.0, C reatine Kinase MB Relative Index 3.70, Troponin I < 0.02 10/20/20 06:03: POC Glucose (Misc Panel) 160H, POC Sodium (Misc Panel) 143, POC Potassium (Misc Panel) 3.8, POC Chloride (Misc Panel) 109, POC Total CO2 (Misc Panel) 23.0, POC Blood Urea Nitrogen (Misc Panel 58H, POC Ionized Calcium (Misc Panel) 5.0, POC Creatinine (Misc Panel) 0.6, POC Hematocrit (Misc Panel) 22.0L CBC/BMP Laboratory Tests 10/20/20 05:58 Home Medications Scheduled Aspirin (Aspirin EC) 81 Mg Tablet.dr, 81 MG PO DAILY Cholecalciferol (Vitamin D3) (Vitamin D3) 50 Mcg Capsule, 50 MCG PO DAILY Lisinopril (Lisinopril) 10 Mg Tablet, 10 MG PO QPM Magnesium (Magnesium) 200 Mg Tablet, 200 MG PO DAILY [place]-3 Fatty Acids/Fish Oil (Fish Oil 1,000 mg Capsule) 1 Each Capsule, 1,000 MG PO BID [curamed] , 375 MG PO DAILY Allergies Coded Allergies: Penicillins (Verified Allergy, Unknown, hives, 04/28/19) shellfish derived (Verified Allergy, Unknown, passed out, 04/28/19) passed out tramadol (Verified Adverse Reaction, Unknown, N/V, 04/28/19) A-FIB/CHADSVASC A-FIB History Current/History of A-Fib/PAF?: No Current PO Anticoag Therapy: No Age/Risk Factor Scoring CHADSVASC: CHADSVASC Response (Comments) Value Age Risk Factor Age >/= 75 years old 2 Gender Risk Factor Female 1 Hx of CHF No 0 Hx of HTN Yes 1 Hx of Stroke/TIA/or VTE No 0 Hx of Diabetes No 0 Hx of Vascular Disease No 0 Total 4 Treatment Treatment ordered: NONE BRUNA RODAS MD Oct 20, 2020 12:25
[2020-10-20 12:30] LABS: HEMATOCRIT 24.1 % (36.0-47.0); HEMOGLOBIN 7.8 g/dl (12.0-15.5)
[2020-10-20] MEDS ORDERED: GLUCOSE 4GM CHEW TABLET PO PRN (12:30)
[2020-10-20] MEDS ORDERED: DEXTROSE 50% 50 ML SYRINGE IV PRN (12:30)
[2020-10-20] MEDS ORDERED: GLUCAGON INJ 1MG VIAL SC PRN (12:30)
[2020-10-20] MEDS ORDERED: D5W/0.45% SODIUM CHLORIDE 1,000 ML IV SCH (15:15)
--- NOTE | 2020-10-20 19:13 | IPNPDOC ---
Text Note Date of Service The patient was seen on 10/20/20. NOTE Pt was seen and examined in pre-op. No changes to H+P. Full consult is dictated. She feels much better after getting some blood and fluids. No current complaints. All questions answered, and she will be going for an EGD soon. Jeff Chappell DO VS,Sean, I+O VS, Asife, I+O Laboratory Tests 10/20/20 05:58 10/20/20 12:15 Vital Signs Date Time Temp Pulse Resp B/P (MAP) Pulse Ox O2 Delivery O2 Flow Rate FiO2 10/20/20 18:45 98.4 89 14 118/67 100 Room Air MARISELA CHAPPELL DO Oct 20, 2020 19:13
[2020-10-20] MEDS ORDERED: LIDOCAINE 2% 100MG/5ML SDV (FOR ANES.) As Ordered ONE (19:40)
[2020-10-20] MEDS ORDERED: propofoL 200 MG/20 ML VIAL As Ordered ONE (19:40)
--- NOTE | 2020-10-20 20:25 | CR ---
CONSULTATION DATE: 10/20/2020 REASON FOR CONSULTATION: Melenotic stools. HISTORY OF PRESENT ILLNESS: The patient is an 80-year-old female with a history of hypertension and brain aneurysms who had Coronavirus in the end of September, also had the first dose of her vaccine October 04. Recently she has had some weakness and lightheadedness at home. She thought she was having a side effect to her vaccine so she called her daughter. She was found on the floor in her bathroom. The daughter stated that she did have some coffee ground emesis as well as some melanotic stools. She was brought into the Emergency Room due to GI bleeding. She is currently admitted to the Hospitalist for orthostatic hypotension and symptomatic anemia. She did have a recent colonoscopy in January [address] Lakhani that did show colonic polyps. No other abnormalities at that time. PAST MEDICAL HISTORY: The patient's past medical history is significant for: 1. Hypertension. 2. Brain aneurysm. 3. Vitamin D deficiency. 4. Coronavirus. PAST SURGICAL HISTORY: The patient's past surgical history is significant for: 1. Colonoscopies. 2. Uterine procedure for prolapse. FAMILY HISTORY: Noncontributory. SOCIAL HISTORY: Denies any drug, alcohol or tobacco abuse. ALLERGIES: 1. Penicillins. 2. Shellfish. 3. Tramadol. HOME MEDICATIONS: Please see Med Rec. REVIEW OF SYSTEMS: Pertinent positives and negatives as stated in the HPI. PHYSICAL EXAMINATION: GENERAL APPEARANCE: Alert and oriented x3, in no acute distress. VITAL SIGNS: Temperature 98.4, pulse 89, respirations 14, blood pressure 118/67, pulse oximetry 100% on room air. HEENT: Pupils are equal, round and reactive to light and accommodation. HEART: S1, S2, regular rate and rhythm. LUNGS: Clear to auscultation bilaterally. ABDOMEN: Soft, nontender, nondistended. EXTREMITIES: No clubbing, cyanosis, or edema. LABORATORY STUDIES: White count 12.2, hemoglobin 7 on admission, up to 7.8 after on unit of transfusion, platelet count 259. ASSESSMENT AND PLAN: The patient is an 80-year-old female with melanotic stools, symptomatic anemia due to GI bleeding. Recommendation is to proceed with upper endoscopy. The risks and benefits of the procedure are not limited to but include: bleeding, infection, perforation, damage to surrounding structures and possible need for further surgeries were discussed in detail with the patient. Informed consent was obtained. Procedure was scheduled in the Operating Room.
[2020-10-20] MEDS ORDERED: ONDANSETRON 4MG/2ML VIAL IV PRN (20:45)
[2020-10-20 22:01] LABS: HEMATOCRIT 24.9 % (36.0-47.0); HEMOGLOBIN 8.1 g/dl (12.0-15.5)
[2020-10-20 22:26] LABS: CK-MB VALUE MASS < 1.0 NG/ML (<3.6); CPK CREATINE PHOSPHOKINASE 27 U/L (26-192); TROPONIN I < 0.02 NG/ML (< 0.10)
[2020-10-20 22:32] LABS: ERYTHROCYTE SEDIMENTATION RATE 43 mm/hr (0-30)
[2020-10-21] MEDS: SUCRALFATE SUSP 1GM/10ML UD PO SCH ×3 (00:17→11:55)
[2020-10-21] MEDS: PANTOPRAZOLE SODIUM 40 MG in D5W 50 ML IV SCH ×3 (00:17→08:11)
[2020-10-21 02:00] VITALS: BP 112/61
[2020-10-21] MEDS ORDERED: ONDANSETRON 4MG/2ML VIAL IV PRN (05:45)
[2020-10-21 06:00] VITALS: BP 111/61
[2020-10-21 06:36] LABS: HEMATOCRIT 23.8 % (36.0-47.0); HEMOGLOBIN 7.8 g/dl (12.0-15.5); MEAN CORPUSCULAR HEMOGLOBIN 30.1 pg (27.0-33.0); MEAN CORPUSCULAR HGB CONC 32.8 g/dl (32.0-36.5); MEAN CORPUSCULAR VOLUME 91.9 fl (80.0-96.0); PLATELET COUNT, AUTOMATED 178 10^3/uL (150-450); RED BLOOD COUNT 2.59 10^6/uL (4.00-5.40); WHITE BLOOD COUNT 6.8 10^3/uL (4.0-10.0)
--- NOTE | 2020-10-21 06:52 | RO ---
OPERATIVE NOTE DATE OF OPERATION: 10/20/2020 PREOPERATIVE DIAGNOSIS: Melanotic stools. POSTOPERATIVE DIAGNOSIS: Melanotic stools, likely secondary to gastritis, duodenitis and small hiatal hernia. PROCEDURE: Esophagogastroduodenoscopy (EGD) SURGEON: Florin Chappell DO OIL TANK CAR CLEANER: None. ANESTHESIA: IV sedation. ESTIMATED BLOOD LOSS: None COMPLICATIONS: None. INDICATION FOR PROCEDURE: The patient is an 80-year-old female with melanotic stools and symptomatic anemia. Recommendation was to proceed with upper endoscopy. Risks and benefits of the procedure are not limited to, but included bleeding, infection, perforation, possibility of missing something and need for further surgery were discussed in detail with the patient. Informed consent was obtained and procedure was planned. DESCRIPTION OF PROCEDURE: The patient was brought back to operating room 3. After sufficient sedation, she was placed in the left lateral decubitus position and a bite block was placed. Next, time-out was done to confirm proper patient and proper procedure. Following that, the endoscope was passed down the esophagus, through the stomach and into the second portion of the duodenum. The scope was then slowly brought back revealing some inflammation with some slight bleeding in the wall of the duodenum with light touch. No ulcerations, similar findings in the prepyloric area of the stomach. The scope was then retracted back into the stomach and retroflexed revealing a small hiatal hernia. The scope was then brought back out through the esophagus. The patient tolerated the procedure well and was sent to post anesthesia care unit (PACU) in stable condition.
[2020-10-21 07:01] LABS: BLOOD UREA NITROGEN 33 MG/DL (7-18); CALCIUM LEVEL 7.8 MG/DL (8.8-10.2); CARBON DIOXIDE LEVEL 24 MEQ/L (21-32); CHLORIDE LEVEL 116 MEQ/L (98-107); CK-MB VALUE MASS < 1.0 NG/ML (<3.6); CPK CREATINE PHOSPHOKINASE 23 U/L (26-192); CREATININE FOR GFR 0.62 MG/DL (0.55-1.30); GLOMERULAR FILTRATION RATE > 60.0 (>32); GLUCOSE, FASTING 91 MG/DL (70-100); MB/CK RELATIVE INDEX 4.35 (< OR =4); POTASSIUM SERUM 3.8 MEQ/L (3.5-5.1); SODIUM LEVEL 148 MEQ/L (136-145); TROPONIN I < 0.02 NG/ML (< 0.10)
--- NOTE | 2020-10-21 08:13 | ECGEPIP ---
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
[2020-10-21] MEDS ORDERED: PROT1TAB2 PO (08:25)
[2020-10-21] MEDS ORDERED: CARA1TAB6 PO (08:25)
[2020-10-21] MEDS ORDERED: SELF1KIT MC (08:28)
[2020-10-21 10:21] VITALS: BP 114/60
[2020-10-21 12:42] LABS: HEMATOCRIT 30.3 % (36.0-47.0)
[2020-10-21 12:46] LABS: HEMOGLOBIN 9.8 g/dl (12.0-15.5)
--- NOTE | 2020-10-21 13:52 | IPN ---
PROGRESS NOTE DATE: 10/21/20 SUBJECTIVE: Patient denies bright red blood per rectum, melena, black tarry stools since yesterday and no coffee ground emesis, hematemesis, nausea, vomiting or abdominal pain this morning. No complaints of shortness of breath. Despite 1 unit RBC transfusion patient's hemoglobin decreased from 8.1 to 7.8 this morning. She is currently on Protonix 40 daily and Carafate 1 gram before meals/at bedtime and resumed on a regular diet. Patient was found to have gastritis and duodenitis with small hiatal hernia on EGD by Dr. Chappell yesterday. PHYSICAL EXAMINATION ON DISCHARGE: Vital signs: Temperature 96.6, pulse 91, respiratory rate 18, blood pressure 114/60, 99% on room air. General: Awake, alert, oriented times 3, answering questions appropriately, no use of respiratory accessory muscles. HEENT: Slight pallor. No icterus. Dry mucous membranes. Neck: No JVD, thyromegaly. Lungs: Diminished, but clear to auscultation, no wheezes, rhonchi or rales. Heart: S1 and S2 sinus rhythm. Abdomen: Soft, nontender, nondistended, positive bowel sounds. Extremities: No cyanosis, clubbing or any pitting edema. LABORATORY DATA: White count 6.8, hemoglobin 7.8, hematocrit 23, platelet count 178. Sodium 148, potassium 3.8, chloride 116, bicarb 24, BUN 33, creatinine 0.6, glucose 91. Troponin less than 0.02. Procalcitonin 0.08. COVID positive. ASSESSMENT: This is an 80-year-old female on chronic aspirin, history of brain aneurysm status post coil 25 years ago, dry eyes, Coronavirus positive since September 27, diverticulosis with colonic polyps, symptomatic prolapse requiring sacrospinal suspension with anterior posterior repair and cystourethroscopy presented to the Emergency Room with complaints of dizziness and lightheadedness for 2 days with black tarry stools. Patient was scoped and was found to have gastritis, duodenitis, small hiatal hernia. She was kept on Protonix, Carafate and had to be transfused 3 units of RBCs due to a hemoglobin of 7. CURRENT ISSUES: 1. Acute blood loss anemia. 2. Duodenitis. 3. Gastritis. 4. Small hiatal hernia. 5. Symptomatic anemia. 6. Hypernatremia. PLAN: Patient denies any recurrent black tarry stools, and has no other symptoms of anemia-denies syncope, lightheadedness, sob, chest pressure, tightness, dizziness. if repeat hgb>8, and no signs of bleeding, no need to transfuse rbc and may go home. if repeat hgb<8, transfuse 2 u rbc, and monitor h&h. if stable overnight, dc in am. may continue ppi and carafate. dc aspirin. avoid nsaids. MTDD
[2020-10-22] MEDS ORDERED: PANTOPRAZOLE 40MG TAB (PROTONIX) PO SCH (09:00)
--- NOTE | 2020-10-23 14:05 | DS.PDOC ---
Discharge Summary General Date of Admission Oct 20, 2020 at 07:08 Date of Discharge Discharge diagnosis: 1. Acute blood loss anemia. 2. Duodenitis. 3. Gastritis. 4. Small hiatal hernia. 5. Symptomatic anemia. 6. Hypernatremia. 7. history of brain aneurysm status post coil 25 years ago, 8. dry eyes, 9. Coronavirus positive since September 27, 10. diverticulosis with colonic polyps, Discharge medications: See below Allergies: See below Discharge instructions: Primary care physician appointment within 1 week of discharge Etl Application Developer: General surgeon, Dr. Florin Chappell Procedures during this admission: EGD: Duodenitis, gastritis, hiatal hernia Hospital course: This is an 80-year-old female on chronic aspirin, history of brain aneurysm status post coil 25 years ago, dry eyes, Coronavirus positive since September 27, diverticulosis with colonic polyps, symptomatic prolapse requiring sacrospinal suspension with anterior posterior repair and cystourethroscopy presented to the Emergency Room with complaints of dizziness and lightheadedness for 2 days with black tarry stools. Patient was scoped and was found to have gastritis, duodenitis, small hiatal hernia. She was kept on Protonix, Carafate and had to be transfused 3 units of RBCs due to a hemoglobin of 7. Patient denies any recurrent black tarry stools, and has no other symptoms of anemia-denies syncope, lightheadedness, sob, chest pressure, tightness, dizziness. Repeat hemoglobin was distended, not read further transfusion. She passed a home safety evaluation. was tolerating a diet, And was subsequently discharged home in stable condition. PHYSICAL EXAMINATION ON DISCHARGE: Vital signs: Temperature 96.6, pulse 91, respiratory rate 18, blood pressure 114/60, 99% on room air. General: Awake, alert, oriented times 3, answering questions appropriately, no use of respiratory accessory muscles. HEENT: Slight pallor. No icterus. Dry mucous membranes. Neck: No JVD, thyromegaly. Lungs: Diminished, but clear to auscultation, no wheezes, rhonchi or rales. Heart: S1 and S2 sinus rhythm. Abdomen: Soft, nontender, nondistended, positive bowel sounds. Extremities: No cyanosis, clubbing or any pitting edema. LABORATORY DATA: White count 6.8, hemoglobin 7.8, hematocrit 23, platelet count 178. Sodium 148, potassium 3.8, chloride 116, bicarb 24, BUN 33, creatinine 0.6, glucose 91. Troponin less than 0.02. Procalcitonin 0.08. COVID positive. Time spent on discharge 30 minutes Discharge Summary PROCEDURES PERFORMED DURING STAY: [None]. ADMITTING DIAGNOSES: 1. . DISCHARGE DIAGNOSES: 1. . COMPLICATIONS/CHIEF COMPLAINT: Upper Gi Bleed, Symptomatic Anemia. HISTORY OF PRESENT ILLNESS: . HOSPITAL COURSE: . DISCHARGE MEDICATIONS: Please see below. ALLERGIES: Please see below. PHYSICAL EXAMINATION ON DISCHARGE: VITAL SIGNS: Please see below. GENERAL: HEENT: NECK: CARDIOVASCULAR EXAMINATION: RESPIRATORY EXAMINATION: ABDOMINAL EXAMINATION: EXTREMITIES: SKIN: NEUROLOGICAL EXAMINATION: PSYCHIATRIC EXAMINATION: LABORATORY DATA: Please see below. IMAGING: PROGNOSIS: ACTIVITY: [As tolerated]. DIET: DISCHARGE PLAN: DISPOSITION: 01 Home, Self-Care. DISCHARGE INSTRUCTIONS: 1. . ITEMS TO FOLLOWUP ON ON OUTPATIENT: 1. . DISCHARGE CONDITION: [Stable]. TIME SPENT ON DISCHARGE: Greater than minutes. Vital Signs/I&Os Vital Signs Date Time Temp Pulse Resp B/P (MAP) Pulse Ox O2 Delivery O2 Flow Rate FiO2 10/21/20 10:21 96.6 91 18 114/60 (78) 99 Room Air 10/20/20 19:51 2 Microbiology Microbiology 10/20/20 Respiratory Virus Panel (PCR) (OPAL) - Final, Complete SARS-CoV-2 (COVID 19) Discharge Medications Scheduled Cholecalciferol (Vitamin D3) (Vitamin D3) 50 Mcg Capsule, 50 MCG PO DAILY, (Reported) Lisinopril (Lisinopril) 10 Mg Tablet, 10 MG PO QPM, (Reported) Magnesium (Magnesium) 200 Mg Tablet, 200 MG PO DAILY, (Reported) [place]-3 Fatty Acids/Fish Oil (Fish Oil 1,000 mg Capsule) 1 Each Capsule, 1,000 MG PO BID, (Reported) Pantoprazole Sodium (Protonix) 40 Mg Tablet.dr, 40 MG PO DAILY Sucralfate (Carafate) 1 Gm Tablet, 1 GM PO ACHS 4 times per day take on an empty stomach [curamed] , 375 MG PO DAILY, (Reported) Allergies Coded Allergies: Penicillins (Verified Allergy, Unknown, hives, 04/28/19) shellfish derived (Verified Allergy, Unknown, passed out, 04/28/19) passed out tramadol (Verified Adverse Reaction, Unknown, N/V, 04/28/19) BRUNA RODAS MD Oct 23, 2020 14:05
== END 2020-10-21 13:32 | disposition home or self-care (01) | DRG 811 ==
LOC: M ED 05:34 → M ED INP 07:08 → M MSPAV 10:42
PROVIDERS: ADMIT General Practice; ATTEND General Practice
PROC: 30233N1 Transfusion of Nonautologous Red Blood Cells into Peripheral Vein, Percutaneous Approach (ICD-10-PCS; 2020-10-20)
PROC: 0DJ08ZZ Inspection of Upper Intestinal Tract, Via Natural or Artificial Opening Endoscopic (ICD-10-PCS; principal; 2020-10-20 17:30)
DX: D62 Acute posthemorrhagic anemia (principal); K29.81 Duodenitis with bleeding; E87.0 Hyperosmolality and hypernatremia; K44.9 Diaphragmatic hernia without obstruction or gangrene; K57.30 Diverticulosis of large intestine without perforation or abscess without bleeding; Z79.82 Long term (current) use of aspirin; Z79.899 Other long term (current) drug therapy; Z88.0 Allergy status to penicillin; Z91.013 Allergy to seafood; Z88.8 Allergy status to other drugs, medicaments and biological substances; I10 Essential (primary) hypertension; I95.1 Orthostatic hypotension; E55.9 Vitamin D deficiency, unspecified; K63.5 Polyp of colon

== ENCOUNTER → 2021-01-09 | Outpatient (CLI) | payer MEDICARE, BC, OTHER ==
[~2021-01-09] MED LIST changes: +CARA1TAB6 PO; +LISI10TA22 PO; +MAGN200T PO; +PROT1TAB2 PO; +SELF1KIT MC; +VITA200016 PO
[2021-01-09 09:50] LABS: BASO # 0.1 10^3/uL (0.0-0.2); BASO % 0.8 % (0.0-1.0); EOS # 0.3 10^3/uL (0.0-0.5); EOS % 4.5 % (0.0-3.0); HEMATOCRIT 36.5 % (36.0-47.0); HEMOGLOBIN 11.2 g/dl (12.0-15.5); LYMPH % 32.6 % (24.0-44.0); MEAN CORPUSCULAR HEMOGLOBIN 28.5 pg (27.0-33.0); MEAN CORPUSCULAR HGB CONC 30.7 g/dl (32.0-36.5); MEAN CORPUSCULAR VOLUME 92.9 fl (80.0-96.0); MONO # 0.6 10^3/uL (0.0-0.8); MONO % 9.6 % (2.0-8.0); NEUTROPHILS # 3.2 10^3/uL (1.5-8.5); NEUTROPHILS % 52.3 % (36.0-66.0); PLATELET COUNT, AUTOMATED 336 10^3/uL (150-450); RED BLOOD COUNT 3.93 10^6/uL (4.00-5.40)
[2021-01-09 10:45] LABS: ALT/SGPT 17 U/L (12-78); BILIRUBIN,TOTAL 0.2 MG/DL (0.2-1.0); BLOOD UREA NITROGEN 21 MG/DL (7-18); CALCIUM LEVEL 10.4 MG/DL (8.8-10.2); CARBON DIOXIDE LEVEL 29 MEQ/L (21-32); CHLORIDE LEVEL 107 MEQ/L (98-107); CHOLESTEROL LEVEL 207 MG/DL (<200); CHOLESTEROL RISK RATIO 2.435 (<5); CREATININE FOR GFR 0.74 MG/DL (0.55-1.30); GLOMERULAR FILTRATION RATE > 60.0 (>32); GLUCOSE, FASTING 106 MG/DL (70-100); HDL CHOLESTEROL 85 MG/DL (>40); LDL CHOLESTEROL 108 MG/DL (<100); NON-HDL-C 122 MG/DL; POTASSIUM SERUM 4.4 MEQ/L (3.5-5.1); SODIUM LEVEL 139 MEQ/L (136-145); TOTAL PROTEIN 7.7 GM/DL (6.4-8.2); TRIGLYCERIDES LEVEL 71 MG/DL (<150)
== END ==
LOC: M WUC 08:05
PROVIDERS: ATTEND Family Medicine
DX: I10 Essential (primary) hypertension (principal)

== ENCOUNTER → 2021-02-03 | Outpatient (CLI) | payer MEDICARE, BC ==
--- NOTE | 2021-02-03 10:08 | REPMRS ---
Patient History The patient states she has not had a clinical breast exam in over a year. Patient has history of other cancer at age 69. Benign right breast biopsy, 1989. No known family history of cancer. Took hormonal contraceptives for 15 years. 8-10 lb unintentional weight gain. Moderna vaccine right arm. 11/14/20 right arm. Patient states no breast complaints today. Patient has signed MRS History Sheet. Digital Woman Screen Mammo: February 03, 2021 - Exam #: [id number] Bilateral CC and MLO view(s) were taken. Technologist: RT Rhoda Prior study comparison: January 12, 2019, bilateral digital mammo screening bilat, performed at [facility]. January 09, 2018, bilateral digital mammo screening bilat, performed at [facility]. FINDINGS: There are scattered fibroglandular densities. Screening. Digital screening (2D) mammography was performed bilaterally in the CC and MLO projections. Additionally, breast tomosynthesis (3D mammography) was performed bilaterally in the CC and MLO projections. Todays exam was compared to the prior exams. By history, the patient has no complaints of a palpable breast abnormality or other significant breast complaints. The breasts are unchanged in size and shape. There are no brent-soft tissue densities or spiculated masses. There is no internal architectural distortion.Once again, stable benign appearing calcifications are seen. There are no suspicious brent-calcific clusters. Skin thickening or nipple retraction is not present. IMPRESSION: BI-RADS Category 2- Benign Findings. There is no evidence of malignant alteration of the breasts. Followup examination recommended in one year. The Volpara volumetric breast density category is B, there are scattered areas of fibroglandular density. This mammogram was read with the assistance of [facility],an FDA approved computer aided detection system for mammography. The lifetime Tyrer-Cuzick score is 1% Negative x-ray reports should not delay surgical consultation if a dominant or clinically suspicious mass is present. Not all breast cancers can be identified by mammography. Therefore, we recommend that you continue to perform regular breast self-examination and physical examination and then promptly contact your physician of any concerns or changes. Adenosis and dense breasts may obscure an underlying neoplasm. Assessment: BI-RADS/ACR category 2 mammogram. Benign Findings. Recommendation Routine screening mammogram of both breasts in 1 year. Electronically Signed By: Thony Perez DO 02/03/21 1007
--- NOTE | 2021-02-03 11:12 | DEXAMM ---
INDICATION: M89.9 DISORDER OF BONE. COMPARISON: 01/08/2019, 04/24/2004. TECHNIQUE: Bone density was measured using dual-energy x-ray absorptiometry (DEXA). FINDINGS: AP SPINE L1-L4 BMD 1.241 g/cm2 Young Adult T-Score 0.4 Age Matched Z-Score 2.2. LT FEMUR, TOTAL BMD 0.790 g/cm2 Young Adult T-Score -1.7 Age Matched Z-Score 0.4. LT NECK BMD 0.687 g/cm2 Young Adult T-Score -2.5 Age Matched Z-Score -0.3. RT FEMUR, TOTAL BMD 0.664 g/cm2 Young Adult T-Score -2.7 Age Matched Z-Score -0.6. RT NECK BMD 0.582 g/cm2 Young Adult T-Score -3.3 Age Matched Z-Score -1.0. IMPRESSION: There is normal bone density of the spine. There is low bone density of the left hip. There is osteoporosis of the right hip. The density of the spine has increased 6.2% since the initial exam on 04/24/2004. The density of the spine increased 2.6% since most recent exam on 01/08/2019. The density of the left hip has decreased 5.3% since initial exam on 04/24/2004. The density of the left hip has increased 1.2% since most recent exam on 01/08/2019. The density of the right hip has decreased 18.9% since the initial exam on 04/24/2004. The density of the right hip has decreased 11.1% since the most recent exam on 01/08/2019. FOLLOW-UP: Recommendation for the next bone density exam: 2 years. <Electronically signed by Florin Castaneda > 02/03/21 [id number]
== END ==
LOC: M WHC 08:53
PROVIDERS: ATTEND Family Medicine
DX: Z12.31 Encounter for screening mammogram for malignant neoplasm of breast (principal); M81.0 Age-related osteoporosis without current pathological fracture; M85.852 Other specified disorders of bone density and structure, left thigh; Z85.9 Personal history of malignant neoplasm, unspecified; R92.1 Mammographic calcification found on diagnostic imaging of breast

== ENCOUNTER → 2021-03-13 | Outpatient (CLI) | payer MEDICARE, BC ==
[2021-03-13 10:57] LABS: BLOOD UREA NITROGEN 19 MG/DL (7-18); CALCIUM LEVEL 10.2 MG/DL (8.8-10.2); CARBON DIOXIDE LEVEL 29 MEQ/L (21-32); CHLORIDE LEVEL 108 MEQ/L (98-107); CREATININE FOR GFR 0.86 MG/DL (0.55-1.30); GLOMERULAR FILTRATION RATE > 60.0 (>32); GLUCOSE, FASTING 87 MG/DL (70-100); POTASSIUM SERUM 4.9 MEQ/L (3.5-5.1); SODIUM LEVEL 142 MEQ/L (136-145)
[2021-03-13 11:26] LABS: TOTAL 25(OH) VITAMIN D 45.8 NG/ML (30.0-100.0)
== END ==
LOC: M WUC 08:06
PROVIDERS: ATTEND Internal Medicine Endocrinology, Diabetes & Metabolism
DX: M81.0 Age-related osteoporosis without current pathological fracture (principal)

== ENCOUNTER 2021-03-22 07:56 | Outpatient (CLI) | payer MEDICARE, BC, OTHER ==
[~2021-03-22] VITALS: Ht 160 cm; Wt 63.6 kg
[2021-03-22 08:00] VITALS: BP 150/71
[2021-03-22] MEDS ORDERED: ZOLEDRONIC ACID 5 MG in IV 1 EA IV ONE (08:00)
[2021-03-22] MEDS ORDERED: B-12100T2 PO (08:16)
[2021-03-22 09:00] VITALS: BP 136/63
== END 2021-03-22 09:05 | disposition home or self-care (01) ==
LOC: M INFU 07:56
PROVIDERS: ATTEND Internal Medicine Endocrinology, Diabetes & Metabolism
DX: M81.0 Age-related osteoporosis without current pathological fracture (principal); Z88.0 Allergy status to penicillin; Z88.8 Allergy status to other drugs, medicaments and biological substances
CPT/HCPCS: 96365; J3489

== ENCOUNTER → 2021-06-12 | Outpatient (CLI) | payer MEDICARE, BC, OTHER ==
[~2021-06-12] MED LIST changes: +B-12100T2 PO
[2021-06-12 15:22] LABS: BLOOD UREA NITROGEN 25 MG/DL (7-18); CALCIUM LEVEL 9.4 MG/DL (8.8-10.2); CARBON DIOXIDE LEVEL 29 MEQ/L (21-32); CHLORIDE LEVEL 109 MEQ/L (98-107); CREATININE FOR GFR 0.87 MG/DL (0.55-1.30); GLOMERULAR FILTRATION RATE > 60.0 (>32); GLUCOSE, FASTING 91 MG/DL (70-100); POTASSIUM SERUM 4.5 MEQ/L (3.5-5.1); SODIUM LEVEL 142 MEQ/L (136-145)
== END ==
LOC: M WUC 08:03
PROVIDERS: ATTEND Internal Medicine Endocrinology, Diabetes & Metabolism
DX: M81.0 Age-related osteoporosis without current pathological fracture (principal)

== ENCOUNTER → 2021-12-11 | Outpatient (CLI) | payer MEDICARE, BC, OTHER ==
[2021-12-11 10:42] LABS: BASO # 0.1 10^3/uL (0.0-0.2); BASO % 0.8 % (0.0-1.0); EOS # 0.3 10^3/uL (0.0-0.5); EOS % 5.3 % (0.0-3.0); HEMATOCRIT 38.2 % (36.0-47.0); HEMOGLOBIN 12.6 g/dl (12.0-15.5); LYMPH # 2.2 10^3/uL (1.5-5.0); MEAN CORPUSCULAR HEMOGLOBIN 31.5 pg (27.0-33.0); MEAN CORPUSCULAR VOLUME 95.5 fl (80.0-96.0); MONO # 0.6 10^3/uL (0.0-0.8); MONO % 9.7 % (2.0-8.0); NEUTROPHILS # 3.2 10^3/uL (1.5-8.5); NEUTROPHILS % 49.9 % (36.0-66.0); PLATELET COUNT, AUTOMATED 306 10^3/uL (150-450); WHITE BLOOD COUNT 6.4 10^3/uL (4.0-10.0)
[2021-12-11 11:20] LABS: ALT/SGPT 20 U/L (12-78); BILIRUBIN,TOTAL 0.5 MG/DL (0.2-1.0); BLOOD UREA NITROGEN 20 MG/DL (7-18); CALCIUM LEVEL 9.8 MG/DL (8.8-10.2); CARBON DIOXIDE LEVEL 30 MEQ/L (21-32); CHLORIDE LEVEL 106 MEQ/L (98-107); CHOLESTEROL LEVEL 205 MG/DL (<200); CREATININE FOR GFR 0.76 MG/DL (0.55-1.30); GLOMERULAR FILTRATION RATE > 60.0 (>32); GLUCOSE, FASTING 94 MG/DL (70-100); HDL CHOLESTEROL 74 MG/DL (>40); LDL CHOLESTEROL 111 MG/DL (<100); NON-HDL-C 131 MG/DL; POTASSIUM SERUM 4.2 MEQ/L (3.5-5.1); SODIUM LEVEL 141 MEQ/L (136-145); TOTAL PROTEIN 7.4 GM/DL (6.4-8.2); TRIGLYCERIDES LEVEL 99 MG/DL (<150)
== END ==
LOC: M WUC 07:59
PROVIDERS: ATTEND Family Medicine
DX: I10 Essential (primary) hypertension (principal)

== ENCOUNTER → 2022-01-01 | Outpatient (CLI) | payer MEDICARE, BC, OTHER ==
[2022-01-01 11:00] LABS: BLOOD UREA NITROGEN 27 MG/DL (7-18); CALCIUM LEVEL 9.7 MG/DL (8.8-10.2); CARBON DIOXIDE LEVEL 32 MEQ/L (21-32); CHLORIDE LEVEL 106 MEQ/L (98-107); CREATININE FOR GFR 0.83 MG/DL (0.55-1.30); GLOMERULAR FILTRATION RATE > 60.0 (>32); GLUCOSE, FASTING 87 MG/DL (70-100); POTASSIUM SERUM 4.6 MEQ/L (3.5-5.1); SODIUM LEVEL 139 MEQ/L (136-145)
[2022-01-01 11:16] LABS: TOTAL 25(OH) VITAMIN D 40.3 NG/ML (30.0-100.0)
== END ==
LOC: M WUC 07:59
PROVIDERS: ATTEND Internal Medicine Endocrinology, Diabetes & Metabolism
DX: M81.0 Age-related osteoporosis without current pathological fracture (principal)

== ENCOUNTER 2022-03-26 14:27 | Outpatient (CLI) | payer MEDICARE, BC, OTHER ==
[~2022-03-26] VITALS: Ht 154.9 cm; Wt 62.7 kg
[2022-03-26 14:45] VITALS: BP 140/67
[2022-03-26] MEDS ORDERED: ZOLEDRONIC ACID 5 MG in IV 1 EA IV ONE (15:00)
[2022-03-26 15:33] VITALS: BP 136/68
== END 2022-03-26 15:35 | disposition home or self-care (01) ==
LOC: M INFU 14:27
PROVIDERS: ATTEND Internal Medicine Endocrinology, Diabetes & Metabolism
DX: M81.0 Age-related osteoporosis without current pathological fracture (principal); Z88.0 Allergy status to penicillin; Z88.5 Allergy status to narcotic agent; Z91.013 Allergy to seafood
CPT/HCPCS: 96365; J3489

== ENCOUNTER → 2022-06-05 | Outpatient (REF) | payer MEDICARE, OTHER, BC ==
[2022-06-05 13:59] LABS: BLOOD UREA NITROGEN 19 MG/DL (7-18); CALCIUM LEVEL 9.8 MG/DL (8.8-10.2); CARBON DIOXIDE LEVEL 28 MEQ/L (21-32); CHLORIDE LEVEL 105 MEQ/L (98-107); CREATININE FOR GFR 0.84 MG/DL (0.55-1.30); GLOMERULAR FILTRATION RATE > 60.0 (>32); GLUCOSE, FASTING 95 MG/DL (70-100); POTASSIUM SERUM 4.6 MEQ/L (3.5-5.1); SODIUM LEVEL 138 MEQ/L (136-145)
== END ==
LOC: M LABWUC 12:12
PROVIDERS: ATTEND Nurse Practitioner Family
DX: M81.0 Age-related osteoporosis without current pathological fracture (principal)

== ENCOUNTER → 2022-12-12 | Outpatient (CLI) | payer MEDICARE, OTHER, BC ==
[2022-12-12 10:13] LABS: BASO # 0.1 10^3/uL (0.0-0.2); BASO % 1.1 % (0.0-1.0); EOS # 0.7 10^3/uL (0.0-0.5); EOS % 11.6 % (0.0-3.0); HEMATOCRIT 35.5 % (36.0-47.0); HEMOGLOBIN 11.2 g/dl (12.0-15.5); LYMPH # 1.9 10^3/uL (1.5-5.0); LYMPH % 29.3 % (24.0-44.0); MEAN CORPUSCULAR HEMOGLOBIN 30.1 pg (27.0-33.0); MEAN CORPUSCULAR HGB CONC 31.5 g/dl (32.0-36.5); MEAN CORPUSCULAR VOLUME 95.4 fl (80.0-96.0); MONO # 0.6 10^3/uL (0.0-0.8); MONO % 8.9 % (2.0-8.0); NEUTROPHILS # 3.1 10^3/uL (1.5-8.5); NEUTROPHILS % 48.8 % (36.0-66.0); PLATELET COUNT, AUTOMATED 272 10^3/uL (150-450); RED BLOOD COUNT 3.72 10^6/uL (4.00-5.40); WHITE BLOOD COUNT 6.3 10^3/uL (4.0-10.0)
[2022-12-12 10:39] LABS: ALBUMIN 3.6 G/DL (3.2-5.2); ALKALINE PHOSPHATASE 52 U/L (46-116); ALT/SGPT 19 U/L (7.0-40); AST/SGOT 15 U/L (<34); BILIRUBIN,TOTAL 0.3 MG/DL (0.3-1.2); BLOOD UREA NITROGEN 17 MG/DL (9-23); CALCIUM LEVEL 9.7 MG/DL (8.3-10.6); CARBON DIOXIDE LEVEL 31 MMOL/L (20-31); CHLORIDE LEVEL 106 MMOL/L (98-107); CREATININE FOR GFR 0.65 MG/DL (0.55-1.30); GLOMERULAR FILTRATION RATE > 60.0 (>32); GLUCOSE, FASTING 89 MG/DL (74-106); POTASSIUM SERUM 4.6 MMOL/L (3.5-5.1); SODIUM LEVEL 141 MMOL/L (136-145); TOTAL PROTEIN 6.7 G/DL (5.7-8.2)
== END ==
LOC: M WUC 08:41
PROVIDERS: ATTEND Nurse Practitioner Family
DX: I10 Essential (primary) hypertension (principal)

== ENCOUNTER → 2023-01-30 | Outpatient (CLI) | payer MEDICARE, OTHER, BC ==
[2023-01-30 12:46] LABS: PERCENT SATURATION 29.3 % (13.2-45.0)
[2023-01-30 12:54] LABS: BASO % 0.7 % (0.0-1.0); EOS # 0.5 10^3/uL (0.0-0.5); EOS % 7.6 % (0.0-3.0); HEMATOCRIT 35.8 % (36.0-47.0); HEMOGLOBIN 11.7 g/dl (12.0-15.5); LYMPH # 2.1 10^3/uL (1.5-5.0); LYMPH % 34.6 % (24.0-44.0); MEAN CORPUSCULAR HEMOGLOBIN 30.8 pg (27.0-33.0); MEAN CORPUSCULAR HGB CONC 32.7 g/dl (32.0-36.5); MEAN CORPUSCULAR VOLUME 94.2 fl (80.0-96.0); MONO # 0.6 10^3/uL (0.0-0.8); MONO % 10.2 % (2.0-8.0); NEUTROPHILS # 2.9 10^3/uL (1.5-8.5); NEUTROPHILS % 46.7 % (36.0-66.0); PLATELET COUNT, AUTOMATED 294 10^3/uL (150-450); WHITE BLOOD COUNT 6.2 10^3/uL (4.0-10.0)
== END ==
LOC: M WUC 09:29
PROVIDERS: ATTEND Nurse Practitioner Family
DX: D64.9 Anemia, unspecified (principal)

== ENCOUNTER → 2023-02-04 | Outpatient (CLI) | payer MEDICARE, BC, OTHER | LOC: M WHC 07:35 | PROVIDERS: ATTEND Family Medicine | DX: Z12.31 Encounter for screening mammogram for malignant neoplasm of breast (principal); M89.9 Disorder of bone, unspecified; N63.20 Unspecified lump in the left breast, unspecified quadrant; M81.0 Age-related osteoporosis without current pathological fracture; M85.89 Other specified disorders of bone density and structure, multiple sites ==

== ENCOUNTER → 2023-02-14 | Outpatient (CLI) | payer MEDICARE, BC, OTHER | LOC: M WHC 10:10 | PROVIDERS: ATTEND Registered Nurse | DX: R92.8 Other abnormal and inconclusive findings on diagnostic imaging of breast (principal); N63.42 Unspecified lump in left breast, subareolar; N60.12 Diffuse cystic mastopathy of left breast ==

== ENCOUNTER → 2023-03-20 | Outpatient (CLI) | payer MEDICARE, BC, OTHER ==
[2023-03-20 13:55] LABS: APPEARANCE, URINE CLEAR (CLEAR); BACTERIA, URINE AUTO 1+ (NEGATIVE); BILIRUBIN, URINE AUTO NEGATIVE (NEGATIVE); BLOOD, URINE BLOOD NEGATIVE (NEGATIVE); COLOR, URINE YELLOW (YELLOW); GLUCOSE, URINE (UA) AUTO NEGATIVE (NEGATIVE); KETONE, URINE AUTO NEGATIVE (NEGATIVE); LEUKOCYTE ESTERASE, URINE AUTO 3+ (NEGATIVE); NITRITE, URINE AUTO NEGATIVE (NEGATIVE); PROTEIN, URINE AUTO NEGATIVE (NEGATIVE); RBC, URINE AUTO 2 /HPF (0-3); SPECIFIC GRAVITY URINE AUTO 1.005 (1.002-1.035); SQUAMOUS EPITHELIAL CELL UR AU 1 /HPF (0-6); UROBILINOGEN, URINE AUTO 0.2 mg/dL (0.0-2.0); WBC, URINE AUTO 12 /HPF (0-3)
== END ==
LOC: M WUC 09:10
PROVIDERS: ATTEND Nurse Practitioner Family
DX: N39.0 Urinary tract infection, site not specified (principal)

== ENCOUNTER → 2023-05-23 | Outpatient (CLI) | payer MEDICARE, BC, OTHER ==
[2023-05-23 12:07] LABS: BLOOD UREA NITROGEN 31 MG/DL (9-23); CALCIUM LEVEL 9.5 MG/DL (8.3-10.6); CARBON DIOXIDE LEVEL 29 MMOL/L (20-31); CHLORIDE LEVEL 105 MMOL/L (98-107); CREATININE FOR GFR 0.76 MG/DL (0.55-1.30); GLOMERULAR FILTRATION RATE > 60.0 (>32); GLUCOSE, FASTING 81 MG/DL (74-106); POTASSIUM SERUM 4.6 MMOL/L (3.5-5.1); SODIUM LEVEL 141 MMOL/L (136-145); TOTAL 25(OH) VITAMIN D 52.2 NG/ML (20.0-100.0)
== END ==
LOC: M WUC 08:06
PROVIDERS: ATTEND Nurse Practitioner Family
DX: M81.0 Age-related osteoporosis without current pathological fracture (principal)

== ENCOUNTER 2023-06-05 15:00 | Outpatient (CLI) | payer MEDICARE, BC, OTHER ==
[~2023-06-05] VITALS: Ht 154.9 cm; Wt 65.0 kg
[2023-06-05 15:00] VITALS: BP 165/73; O2SAT 98
[2023-06-05] MEDS ORDERED: ZOLEDRONIC ACID 5 MG in IV 1 EA IV ONE (15:30)
[2023-06-05 16:07] VITALS: BP 154/76; O2SAT 96
== END 2023-06-05 16:10 ==
LOC: M INFU 15:00
PROVIDERS: ATTEND Internal Medicine Endocrinology, Diabetes & Metabolism
DX: M81.0 Age-related osteoporosis without current pathological fracture (principal); Z88.0 Allergy status to penicillin; Z88.5 Allergy status to narcotic agent
CPT/HCPCS: 96365; J3489

== ENCOUNTER → 2023-08-14 | Outpatient (CLI) | payer MEDICARE, BC, OTHER | LOC: M WHC 10:17 | PROVIDERS: ATTEND Family Medicine | DX: R92.8 Other abnormal and inconclusive findings on diagnostic imaging of breast (principal); N63.42 Unspecified lump in left breast, subareolar ==

== ENCOUNTER → 2024-01-21 | Outpatient (CLI) | payer MEDICARE, BC | LOC: M WHC 07:14 | PROVIDERS: ATTEND Registered Nurse | DX: Z12.31 Encounter for screening mammogram for malignant neoplasm of breast (principal) ==

== ENCOUNTER → 2024-06-22 | Outpatient (CLI) | payer MEDICARE, BC ==
[2024-06-22 13:20] LABS: BASO # 0.1 10^3/uL (0.0-0.2); BASO % 1.4 % (0.0-1.0); EOS # 0.3 10^3/uL (0.0-0.5); EOS % 4.1 % (0.0-3.0); HEMATOCRIT 36.2 % (36.0-47.0); HEMOGLOBIN 11.5 g/dl (12.0-15.5); LYMPH # 2.2 10^3/uL (1.5-5.0); LYMPH % 31.3 % (24.0-44.0); MEAN CORPUSCULAR HGB CONC 31.8 g/dl (32.0-36.5); MEAN CORPUSCULAR VOLUME 97.6 fl (80.0-96.0); MONO # 0.7 10^3/uL (0.0-0.8); MONO % 10.4 % (2.0-8.0); NEUTROPHILS # 3.7 10^3/uL (1.5-8.5); NEUTROPHILS % 52.5 % (36.0-66.0); PLATELET COUNT, AUTOMATED 290 10^3/uL (150-450); RED BLOOD COUNT 3.71 10^6/uL (4.00-5.40)
[2024-06-22 13:49] LABS: FERRITIN 174.5 NG/ML (7.3-270.7)
[2024-06-22 13:50] LABS: ALBUMIN 3.7 G/DL (3.2-5.2); ALKALINE PHOSPHATASE 54 U/L (46-116); ALT/SGPT 11 U/L (7.0-40); AST/SGOT 11 U/L (<34); BILIRUBIN,TOTAL 0.3 MG/DL (0.3-1.2); BLOOD UREA NITROGEN 22 MG/DL (9-23); CARBON DIOXIDE LEVEL 29 MMOL/L (20-31); CHLORIDE LEVEL 109 MMOL/L (98-107); CREATININE FOR GFR 0.73 MG/DL (0.55-1.30); GLOMERULAR FILTRATION RATE > 60.0 (>32); GLUCOSE, FASTING 93 MG/DL (74-106); IRON (FE) 79 UG/DL (50-170); PERCENT SATURATION 26.2 % (13.2-45.0); POTASSIUM SERUM 4.1 MMOL/L (3.5-5.1); SODIUM LEVEL 143 MMOL/L (136-145); TOTAL IRON BINDING CAPACITY 302 UG/DL (250-425); TOTAL PROTEIN 7.2 G/DL (5.7-8.2)
== END ==
LOC: M WUC 10:09
PROVIDERS: ATTEND Registered Nurse
DX: D64.9 Anemia, unspecified (principal)

== ENCOUNTER → 2025-06-21 | Outpatient (CLI) | payer MEDICARE, BC ==
[2025-06-21 12:57] LABS: TOTAL 25(OH) VITAMIN D 49.8 NG/ML (20.0-100.0)
[2025-06-21 12:58] LABS: ALT/SGPT 15.0 U/L (7.0-40); AST/SGOT 16.0 U/L (<34); CALCIUM LEVEL 9.9 MG/DL (8.3-10.6); CARBON DIOXIDE LEVEL 26.0 MMOL/L (20-31); CHLORIDE LEVEL 106.0 MMOL/L (98-107); CHOLESTEROL LEVEL 189.0 MG/DL (<200); CHOLESTEROL RISK RATIO 3.11 (<5); CREATININE FOR GFR 0.77 MG/DL (0.55-1.30); GLOMERULAR FILTRATION RATE 75.1 (>32); IRON (FE) 96.0 UG/DL (50-170); LDL CHOLESTEROL 107.1 MG/DL (<100); NON-HDL-C 128.3 MG/DL; PERCENT SATURATION 31.2 % (13.2-45.0); POTASSIUM SERUM 4.1 MMOL/L (3.5-5.1); SODIUM LEVEL 143.0 MMOL/L (136-145); TRIGLYCERIDES LEVEL 106.0 MG/DL (<150)
[2025-06-21 13:00] LABS: BASO # 0.1 10^3/uL (0.0-0.2); BASO % 0.9 % (0.0-1.0); EOS # 0.3 10^3/uL (0.0-0.5); EOS % 3.8 % (0.0-3.0); LYMPH # 2.3 10^3/uL (1.5-5.0); LYMPH % 33.5 % (24.0-44.0); MONO # 0.5 10^3/uL (0.0-0.8); MONO % 7.3 % (2.0-8.0); NEUTROPHILS # 3.7 10^3/uL (1.5-8.5); NEUTROPHILS % 54.2 % (36.0-66.0); PLATELET COUNT, AUTOMATED 263 10^3/uL (150-450); VITAMIN B12 LEVEL 866.0 PG/ML (211-911)
== END ==
LOC: M WUC 08:11
PROVIDERS: ATTEND Registered Nurse
DX: D64.9 Anemia, unspecified (principal); I10 Essential (primary) hypertension